=== PATIENT | female | born 1955 | race Caucasian/White ===

== ENCOUNTER 2019-08-25 11:45 | Outpatient (CLI) | payer OTHER, MEDICARE, SELFPAY ==
--- NOTE | 2019-08-25 11:57 | MM_ITS ---
WS: [id number] RIGHT DIGITAL MAMMOGRAPHY WITH CAD CLINICAL INFORMATION: RT BREAST MASS COMPARISON: June 23, 2019 TECHNIQUE: 3 views of the right breast were obtained. FINDINGS: Scattered fibroglandular densities of the right breast. Again seen are the heterogeneous clusters of calcifications lower inner right breast. There are 2 clusters of heterogeneous punctate calcification s both in a ductal distribution which are indeterminate. Recommend stereotactic guided biopsy of both these areas. MM/[place] [id number] IMPRESSION: BI-RADS: 4B-Suspicious: Intermediate FOLLOW UP: Stereotactic Biopsy Recommended
== END 2019-08-25 11:46 | disposition home or self-care (01) ==
LOC: RADSHAW 11:54
PROVIDERS: Family Provider Electrodiagnostic Medicine; PCP Electrodiagnostic Medicine; Visit Provider Electrodiagnostic Medicine
DX: R92.1 Mammographic calcification found on diagnostic imaging of breast (principal)
CPT/HCPCS: 77065

== ENCOUNTER 2019-09-10 05:49 | Day surgery (SDC) | payer OTHER, MEDICARE, SELFPAY ==
[2019-09-09 10:08] VITALS: BMI 29.0
[2019-09-10] MEDS: sodium chloride 0.9% 1,000 ML 30 ML (06:28)
[2019-09-10 06:32] LABS: Glucose Point of Care 92 mg/dL (70-110)
--- NOTE | 2019-09-10 06:47 | ANES.PREANES ---
Pre-Anesthetic Assessment Pre-Anesthetic Assessment: Height/Weight: Height 1.68 m Weight 81.647 kg Preop Diagnosis: constipation Proposed Procedure: Operation Date: 09/10/19 07:00 Proposed Procedures p Colonoscopy(Not Applicable) - Parveen Rabago MD Was Beta Javier taken within 24 hours: Yes Last intake: Intake Last Liquid Date 09/09/19 Last Liquid Time 16:00 Last Solid Date 09/08/19 Last Solid Time 17:00 Social: Social History: Tobacco (quit 30 years ago) Exam: Pre-Anes Outpt Exam: alert, oriented x 3 and clear to auscultation bilaterally Airway: Submandibular: WNL Cervical ROM: WNL MP: 2 Pulmonary: Pulmonary: None reported CV/HEM: CV/HEM: HTN : : None reported Hepatic: Hepatic: None reported GI: GI: None reported Metabolic: Metabolic: DM (pre-diabetes) Musc/skel: Musc/skel: None reported Neuropsych: Neuropsych: None reported Anesthetic Plan: ASA status: II Anesthesia: Anesthesia Evaluation and MAC Risk of > 500 ml blood loss (7ml/kg in children): No PFSH Anesthesia PFSH: Social History (Updated 09/09/19 @ 09:56 by Dede Hernández) Smoking and tobacco status: former smoker Quit status (tobacco): has quit using tobacco Alcohol intake: current Alcohol intake frequency: few times a month Data Anesthesia Other Labs: Laboratory Results - last 48 hr 09/10/19 06:17 POC Glucose 92 Cardiac Studies: No Data to Display
--- NOTE | 2019-09-10 07:09 | PM.HPUD ---
H&P update H&P Update: DATE OF SURGERY/PROCEDURE: 09/10/19 DATE H&P PERFORMED: 09/10/19 PLANNED PROCEDURE: Operation Date: 09/10/19 07:00 Proposed Procedures p Colonoscopy(Not Applicable) - Parveen Rabago MD Full H&P Perinent History: Social History: Social History Smoking and tobacco status: former smoker Quit status (tobacco): has quit using tobacco Alcohol intake: current Alcohol intake frequency: few times a month
[2019-09-10 07:25] VITALS: BP 120/84; PULSE 70; RESP 18; TEMP 36.2; O2SAT 100
[2019-09-10 07:37] VITALS: BP 114/80; PULSE 81; RESP 118; O2SAT 98
--- NOTE | 2019-09-10 07:56 | ANE.PACU ---
 Inpatient post-anesthesia follow up: Airway intact: Yes Vital signs: Temperature 97.1 F Pulse Rate [Left A pical] 81 Respiratory Rate 118 Blood Pressure [Le ft Arm] 114/80 Pulse Oximetry 98 Oxygen Delivery Me thod Room Air Oxygen Flow Rate 3 Fraction of Inspir ed Oxygen Hydration adequate: Yes Nausea and vomiting: No Pain level: Other Pain level: 0/10 Mental status: Baseline
--- NOTE | 2019-09-17 16:13 | PM.HPUD ---
H&P update H&P Update: DATE OF SURGERY/PROCEDURE: 09/17/19 DATE H&P PERFORMED: 08/25/19 H&P UPDATE INFORMATION: H&P completed within last 30 days and No changes to prior documentation PLANNED PROCEDURE: Operation Date: 09/10/19 07:00 Proposed Procedures p Colonoscopy(Not Applicable) - Parveen Rabago MD Full H&P Perinent History: Social History: Social History Smoking and tobacco status: former smoker Quit status (tobacco): has quit using tobacco Alcohol intake: current Alcohol intake frequency: few times a month
--- NOTE | 2019-09-21 10:14 | PM.HPUD ---
H&P update H&P Update: DATE OF SURGERY/PROCEDURE: 09/10/19 DATE H&P PERFORMED: 08/25/19 H&P UPDATE INFORMATION: H&P completed within last 30 days and No changes to prior documentation PLANNED PROCEDURE: Operation Date: 09/10/19 07:00 Proposed Procedures p Colonoscopy(Not Applicable) - Parveen Rabago MD Full H&P Perinent History: Social History: Social History Smoking and tobacco status: former smoker Quit status (tobacco): has quit using tobacco Alcohol intake: current Alcohol intake frequency: few times a month
== END 2019-09-10 07:41 | disposition home or self-care (01) ==
PROVIDERS: Family Provider Electrodiagnostic Medicine; PCP Electrodiagnostic Medicine; Visit Provider Surgery
PROC: 0DJD8ZZ Inspection of Lower Intestinal Tract, Via Natural or Artificial Opening Endoscopic (ICD-10-PCS; CPT 45378; principal; 2019-09-10 07:00)
DX: K92.1 Melena (principal); K59.00 Constipation, unspecified; Z86.010 Personal history of colon polyps; K57.30 Diverticulosis of large intestine without perforation or abscess without bleeding; K64.8 Other hemorrhoids; K63.89 Other specified diseases of intestine; Z87.891 Personal history of nicotine dependence; I10 Essential (primary) hypertension; E11.9 Type 2 diabetes mellitus without complications
CPT/HCPCS: 12345; 36416; 45378; 82962; 96365; J2704; J7030

== ENCOUNTER 2019-09-22 12:04 | Outpatient (CLI) | payer OTHER, MEDICARE, SELFPAY ==
--- NOTE | 2019-09-22 12:13 | MM_ITS ---
WS: [id number] STEREOTACTIC RIGHT BREAST BIOPSY WITH VACUUM ASSISTANCE. History: 2 clusters of Heterogeneous right breast calcifications. Biopsy recommended for suspicious c alcifications. Comparison: Procedure, risks, and complications were discussed the patient who agreed to proceed. Prior imaging w as reviewed. Cluster of calcifications within the right breast are localized. THE MORE POSTERIOR AND SUPERIOR CLUSTER MEDIAL RIGHT BREAST IS SAMPLE A Stereotactic imaging was performed. Patient was prepped and draped in usual sterile fashion. After 1% lidocaine, calcifications were targeted stereotactically in the right breast. Small incision was mad e. Needle advanced into the cluster of calcifications right breast with imaging demonstrating appropr iate position relative to the calcifications. Multiple vacuum-assisted core biopsies were obtained. P ostprocedure imaging demonstrates calcifications within the biopsy specimen. The biopsy cavity was lavaged. Titanium clip was placed at the biopsy site. Postprocedure imaging dem onstrates clip in good position. No immediate complications. NEXT THE ADDITIONAL CLUSTER OF CALCIFICATIONS IN THE MEDIAL RIGHT BREAST MORE SUPERFICIAL AND INFERIO R WERE LOCALIZED SAMPLE B Stereotactic imaging was performed. Patient was prepped and draped in usual sterile fashion. After 1% lidocaine, calcifications were targeted stereotactically in the right breast. Small incision was mad e. Needle advanced into the cluster of calcifications right breast with imaging demonstrating appropr iate position relative to the calcifications. Multiple vacuum-assisted core biopsies were obtained. P ostprocedure imaging demonstrates calcifications within the biopsy specimen. The biopsy cavity was lavaged. Titanium clip was placed at the biopsy site. Postprocedure imaging dem onstrates clip in good position. No immediate complications. 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 Solid and cribriform patterns with calcifications and comedo type necrosis. No invasive malignancy. DCIS is 3 mm in greatest dimension. SPECIMEN B (right inferior and superficial calcifications) Ductal carcinoma in situ. High nuclear grade with central comedo-type necrosis and calcifications. No invasive carcinoma identified. Largest focus of ductal c arcinoma in situ 0.5 CM. DCIS specimens are identical histologically. Prognostic profile pending. See pathology report for additional detail. IMPRESSION: 1. Uncomplicated vacuum-assisted stereotactic biopsy of calcifications in the RIGHT breast. 2. Specimen A pathology demonstrates ductal carcinoma in situ, high nuclear gr bennett. 3. Specimen B pathology demonstrates ductal carcinoma in situ, high nuclear gr bennett. 4. See pathology report for additional detail. BI-RADS 6 FOLLOW UP: Recommend BREAST SURGERY consultation for resection of the above fartun cifications.
[2019-09-29 13:20] LABS: Miscellaneous Test See Scanned Lab Rpt
== END 2019-09-22 12:05 | disposition home or self-care (01) ==
LOC: RADSHAW 12:04
PROVIDERS: Family Provider Electrodiagnostic Medicine; PCP Electrodiagnostic Medicine; Visit Provider Electrodiagnostic Medicine
DX: D05.81 Other specified type of carcinoma in situ of right breast (principal)
CPT/HCPCS: 19081; 19082; 88305; 88361; J2001

== ENCOUNTER 2019-10-07 14:17 | Outpatient (CLI) | payer OTHER, MEDICARE, SELFPAY ==
--- NOTE | 2019-10-07 19:11 | ONC CON_ITS ---
Dr. Yanez New Patient Note Patient: Anna Prater Unit #: [id number]: [id number] Dicatated By: Beltran Yanez M.D.Date of Visit: Oct 07, 2019 Onc MED New Patient/Consult Referring Physician: Chief Complaint: Breast cancer. 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 She had presented with an abnormal screening mammogram. That study, from 06/23/2019, was BI-RADS 0, incomplete. It showed suspicious heterogeneous calcifications in the lower inner quadrant of the right breast. Diagnostic mammogram on 08/25/2019 was BI-RADS 4B, suspicious. It showed 2 clusters of heterogeneous punctate calcifications both in a ductal distribution in the lower inner right breast. Biopsy was recommended. She then underwent stereotactic right breast biopsy with vacuum assistance at both sites. The more superior posterior and medial lesion showed high nuclear grade ductal carcinoma in situ with solid and cribriform pattern and with comedo type necrosis. There was no invasive malignancy identified. The more inferior lesion also showed high-grade ductal carcinoma in situ with central comedo type necrosis. ER and MT receptors were both strongly positive at 98% and 100% respectively. She has been feeling good generally, though she says her energy has never been the best. She is active. Her ECOG score is 0. She has good appetite. Her weight is down a little, but she has been trying to lose. She has not had fever. She has occasional hot flashes. She has no shortness of breath, cough, or chest pain. She has had some chronic bowel problems, which she manages with senna. She had a negative colonoscopy in August. She has frequent urination. She reports having some joint pain here and there and generalized achiness. She has just occasional headache. She reports having numbness in her right hand at night. She had her first child at age 17. She had hysterectomy without oophorectomy in 1990. She underwent natural menopause around age 49. She had no hormone replacement therapy. There is no family history of breast cancer or ovarian cancer. Past Medical History: Her medical history includes hyperlipidemia, hypertension, and type II diabetes. She has a history of cardiac arrhythmia. Past Surgical History: She underwent stereotactic right breast biopsy on 09/22/2019. Her other surgical/procedural history includes devitated septum repair, hemorrhoidectomy x 2, hysterectomy, and tubal ligation. Medications: Lisinopril 1 Tablet (of 20 mg) Oral daily, Magnesium 1 Tablet (of 400 mg) Oral daily, Metoprolol Succinate ER 1 Tablet (of 100 mg) Tablet SR 24 HR Oral daily Allergies: No Known Allergies. Social History: Ms. Prater is . 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 She has a history of smoking 1 1/2 pack of cigarettes daily for 15 years. She quit smoking at age 34. She has just very occasional alcohol use. Family History: Ms. Prater's mother is . Ms. Prater's father is : Abdominal Aortic Aneurysm. Father at age 75 of ruptured thoracic aneurysm. Mother had heart disease and COPD. She also at age 75. Two sisters are in good health. There is no history of breast cancer or ovarian cancer in the family. Review Of Symptoms: Constitutional - She feels good generally, though her energy is not the best. She is very activy. Her appetite is good. She has been working on losing weight. No fever or chills. She occasionally has hot flashes and sweating. ECOG score is 0, Eyes - No change in vision, ENMT - No hearing loss or tinnitus. No sinus congestion/drainage. No mouth sores. No sore throat or difficulty swallowing, Hematologic/Lymphatic - No abnormal bruising or bleeding, Respiratory - No shortness of breath. No cough. No pleuritic pain or hemoptysis, Cardiovascular - No angina pain. She occasionally has an irregular heart rate, Gastrointestinal - No nausea or vomiting. No heartburn or acid reflux. She drinks Senna in her tea everyday to help manage her constipation. No blood in the stool or black stools, Genitourinary (F) - No dysuria or hematuria. She has urinary frequency. No urgency or incontinence, Musculoskeletal - She has occasional generalized aches and pains, Integumentary - No skin complications, Neurologic - She has occasional headaches. No dizziness. She has numbness and tingling in her right hand at night, Psychiatric - No anxiety or depression. No insomnia. Vital Signs: Performed on Oct 07, 2019 14:46: 0, 27.96, 1.88 sq.m, 66.00 in, 99 %, 70 /min, 22 /min, 166/90 mm(hg) (HIGH), 98.3 F (LOW), and 173.2 lbs (HIGH). Physical Examination: Constitutional - She appears to be in good general health, Eyes - Sclerae nonicteric. Conjunctivae clear, ENMT - No lesions noted in the oral cavity, Neck - No mass or thyromegaly, Hematologic/Lymphatic - No cervical or clavicular adenopathy, Respiratory - Lungs are clear with good air movement bilaterally, Cardiovascular - Heart rhythm is regular. There is no murmur, gallop, or rub noted. There is no carotid bruit noted, Breasts - There is a nodule at the biopsy site in the right breast. There are no other breast masses noted. There is no axillary adenopathy, Abdomen - Soft and non-tender. Liver and spleen are not enlarged. There is no abdominal mass or ascites noted and there is no inguinal adenopathy, Back/Spine - No spine or CVA tenderness noted, Extremities - No edema. Pedal pulses are palpable bilaterally, Integumentary - No rashes. No suspicious skin lesions noted, Neurologic - No focal neurologic deficits noted. Impression: 1. 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 2. She underwent stereotactic biopsy of 2 lesions in the lower inner right breast quadrant on 09/22/2019. Her other medical illnesses include: 3. Hypertension. 4. Hyperlipidemia. 5. Type 2 diabetes, currently not requiring medication. 6. She has a history of cardiac arrhythmia. Plan: The pathology results were reviewed with the patient and we discussed the clinical implications. She has ductal carcinoma in situ involving 2 sites within the lower inner quadrant of the right breast. Assuming the lesions can be excised with clear margin, it should be amenable to treatment with breast conservation management. She is aware this would involve lumpectomy of both lesions followed by radiation. She would also then be eligible for adjuvant hormonal therapy, but that can be discussed in more detail later. She would require mastectomy if the disease cannot be resected with clear margin and/or acceptable cosmetic outcome. At this point I will review the mammogram with Dr. Kulkarni and with Dr. Rabago. Assuming everyone is agreeable, she will then proceed with the lumpectomy procedure. Further treatment recommendations will depend on the pathology results. All of her questions were addressed. Signed By: Beltran Yanez M.D. <<Signature on File>>
== END 2019-10-07 14:18 | disposition home or self-care (01) ==
LOC: ONCMED 14:18
PROVIDERS: Family Provider Electrodiagnostic Medicine; PCP Electrodiagnostic Medicine; Referring Provider Electrodiagnostic Medicine; Visit Provider Internal Medicine Medical Oncology
DX: D05.11 Intraductal carcinoma in situ of right breast (principal); Z17.0 Estrogen receptor positive status [ER+]; Z78.0 Asymptomatic menopausal state; E78.5 Hyperlipidemia, unspecified; I10 Essential (primary) hypertension; E11.9 Type 2 diabetes mellitus without complications; Z79.899 Other long term (current) drug therapy; Z87.891 Personal history of nicotine dependence
CPT/HCPCS: 99205

== ENCOUNTER 2019-10-22 06:56 | Outpatient (CLI) | payer OTHER, MEDICARE, SELFPAY ==
[2019-10-21 12:41] VITALS: BMI 29.0
[2019-10-22 07:09] VITALS: BP 165/104; PULSE 61; RESP 18; TEMP 36.2; O2SAT 97
--- NOTE | 2019-10-22 08:03 | MM_ITS ---
WS: [id number] RIGHT BREAST NEEDLE LOCALIZATION by mammography HISTORY: RT BREAST DCIS X 2 COMPARISON: 09/22/2019, 08/25/2019, 06/23/2019 Procedure, risks and complications are explained to the patient. Consent has been obtained. Localization of prior biopsy clips is performed with a grid plate. Skin is cleansed with ChloraPrep a nd anesthetized with 1% buffered lidocaine. Kopans needle is inserted to the biopsy clips. [place] ar e advanced 1.0 cm beyond the biopsy clips. Wire is secured and the patient is sent to the OR with no complications. SPECIMEN RADIOGRAPH: Clips and the entire wires with hooks are present in the specimen. MM/[place] [id number] IMPRESSION: 1. Uncomplicated wire localization of the clips within the RIGHT breast at le or biopsy sites. 2. No complications. 3. Specimen contains the entire wires and clips. PATHOLOGY: Focal surrounding atypical intraductal hyperplasia. No invasive carc inoma or residual ductal carcinoma in situ. RECOMMENDATION: Follow-up with Dr. Rabago.
--- NOTE | 2019-10-22 08:03 | MM_ITS ---
WS: [id number] RIGHT BREAST NEEDLE LOCALIZATION by mammography HISTORY: RT BREAST DCIS X 2 COMPARISON: 09/22/2019, 08/25/2019, 06/23/2019 Procedure, risks and complications are explained to the patient. Consent has been obtained. Localization of prior biopsy clips is performed with a grid plate. Skin is cleansed with ChloraPrep a nd anesthetized with 1% buffered lidocaine. Kopans needle is inserted to the biopsy clips. [place] ar e advanced 1.0 cm beyond the biopsy clips. Wire is secured and the patient is sent to the OR with no complications. SPECIMEN RADIOGRAPH: Clips and the entire wires with hooks are present in the specimen. MM/MM surgical specimen RT IMPRESSION: 1. Uncomplicated wire localization of the clips within the RIGHT breast at le or biopsy sites. 2. No complications. 3. Specimen contains the entire wires and clips. PATHOLOGY: Focal surrounding atypical intraductal hyperplasia. No invasive carc inoma or residual ductal carcinoma in situ. RECOMMENDATION: Follow-up with Dr. Rabago.
--- NOTE | 2019-10-22 09:43 | ANES.PREANE2 ---
Pre-Anesthetic Assessment Pre-Anesthetic Assessment: Height/Weight: Height 1.68 m Weight 81.647 kg Temp Pulse Resp BP Pulse Ox 97.2 F L 61 18 165/104 97 10/22/19 07:09 10/22/19 07:09 10/22/19 07:09 10/22/19 07:09 10/22/19 07:09 Preop Diagnosis: Right breast MAss Proposed Procedure: Operation Date: 10/22/19 10:00 Proposed Procedures p Breast Biopsy Needle Localization(Right) - Parveen Rabago MD Was Beta Javier taken within 24 hours: Yes Last intake: Intake Last Liquid Date 10/21/19 Last Liquid Time 17:00 Last Solid Date 10/21/19 Last Solid Time 17:00 Social: Social History: Tobacco Packs per day: 1 Pack years: 24 Comment: quit 24 Exam: Pre-Anes Outpt Exam: alert, oriented x 3, clear to auscultation bilaterally and regular rate & rhythm Airway: Submandibular: WNL Cervical ROM: WNL MP: 1 CV/HEM: CV/HEM: HTN Comments: rx'd x 30y stress test tnegative : Comments: frequency/urgency Musc/skel: Musc/skel: Lower Back Pain Comments: nonradiating Neuropsych: Neuropsych: WELDON Anesthetic Plan: Anesthesia: MAC PFSH Anesthesia PFSH: Social History (Updated 09/09/19 @ 09:56 by Dede Hernández) Smoking and tobacco status: former smoker Quit status (tobacco): has quit using tobacco Alcohol intake: current Alcohol intake frequency: few times a month Data Anesthesia Cardiac Studies: No Data to Display
[2019-10-22] MEDS: sodium chloride 0.9% 1,000 ML 30 ML IV (10:00)
--- NOTE | 2019-10-22 10:05 | W.PM.OPSUD ---
Surgery/Procedure H&P Update DATE OF PROCEDURE: October 22, 2019 DATE H&P PERFORMED: 08/25/19 H&P UPDATE INFORMATION: I have reviewed H&P completed within last 30 days and No changes to prior documentation PREOP DIAGNOSIS: Right breast MAss PLANNED PROCEDURE: Operation Date: 10/22/19 10:00 Proposed Procedures p Breast Biopsy Needle Localization(Right) - Parveen Rabago MD
--- NOTE | 2019-10-22 10:59 | P.OP_ITS ---
Operative Report Date of procedure: October 22, 2019 Pre-op Diagnosis: Multifocal right breast DCIS. Post-op diagnosis: same Procedure Done: Right breast lumpectomy following needle localization x2. Specimens removed/disposition: Right breast lumpectomy specimen. Long suture anteriorly, short suture medially. Surgeon: Parveen Rabago Anesthesia: MAC Estimated blood loss (mL): 10 Complications: None. Condition: stable Disposition: same day Procedure: The patient was brought to the operating room and was placed in a supine position on the operating room table. A monitored anesthetic was induced. The right breast was prepped and draped in a sterile fashion, taking care not to disturb the localization wires which had been placed in radiology preoperatively. A combination of 1% lidocaine and 0.5% bupivacaine with 1- 200,000 parts epinephrine was used for local anesthesia throughout the procedure. The patient had 2 localization wires entering the upper mid aspect of the right breast. The lesions in question were in the lower inner quadrant on imaging. For that reason a transverse incision was carried out along the 3:00 axis of the right breast and dissection was initially carried out straight posteriorly until the anterior wire was identified. The second localization wire was found to be posterior and somewhat medial to the first. The wires were brought into the incision. A combination of cautery and sharp dissection were then used to divide the tissue all the way around both localization wires. The patient did have some somewhat fibrous tissue in the lower aspect of the breast, put very possibly the areas that were being sought. For that reason dissection was carried out a little bit more posteriorly, leaving the specimen with some partitions in it. Before the specimen was completely removed a long suture was placed anteriorly and a short suture was placed medially. The wound was irrigated with saline and some small bleeding points were controlled with cautery. No additional abnormalities were seen nor felt in the wound. The skin was reapproximated using a running subcuticular suture of 4-0 Vicryl. Benzoin and Steri-Strips were placed over the incision and a sterile bandage followed. The patient was taken to the recovery area in stable condition postoperatively.
[2019-10-22 11:10] VITALS: BP 88/56; PULSE 63; RESP 18; TEMP 36.2; O2SAT 94
[2019-10-22] MEDS: HYDROcodone-acetaminophen 5-325 mg Tablet 1 TAB PO (11:31)
[2019-10-22 11:34] VITALS: BP 128/73; PULSE 62; RESP 18; O2SAT 99
== END 2019-10-22 11:44 | disposition home or self-care (01) ==
PROVIDERS: Family Provider Electrodiagnostic Medicine; PCP Electrodiagnostic Medicine; Visit Provider Surgery
DX: D05.11 Intraductal carcinoma in situ of right breast (principal); K40.90 Unilateral inguinal hernia, without obstruction or gangrene, not specified as recurrent; I10 Essential (primary) hypertension; Z87.891 Personal history of nicotine dependence
CPT/HCPCS: 12345; 19281; 88305; 96365; J0690; J2001; J2250; J2704; J3010; J3490; J7030

== ENCOUNTER 2019-11-27 06:58 | Outpatient (CLI) | payer OTHER, MEDICARE, SELFPAY ==
--- NOTE | 2019-11-27 14:11 | ONC FU_ITS ---
Dr. Yanez Patient Follow-Up Note Patient: Anna Prater Unit #: [id number]: 1955 Dicatated By: Beltran Yanez M.D.Date of Visit:Nov 27, 2019 Onc Med Follow-up/Prog Note Chief Complaint: Breast cancer. 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 She had presented with an abnormal screening mammogram. That study, from 06/23/2019, was BI-RADS 0, incomplete. It showed suspicious heterogeneous calcifications in the lower inner quadrant of the right breast. Diagnostic mammogram on 08/25/2019 was BI-RADS 4B, suspicious. It showed 2 clusters of heterogeneous punctate calcifications both in a ductal distribution in the lower inner right breast. Biopsy was recommended. She then underwent stereotactic right breast biopsy with vacuum assistance at both sites. The more superior posterior and medial lesion showed high nuclear grade ductal carcinoma in situ with solid and cribriform pattern and with comedo type necrosis. There was no invasive malignancy identified. The more inferior lesion also showed high-grade ductal carcinoma in situ with central comedo type necrosis. ER and MI receptors were both strongly positive at 98% and 100% respectively. On 10/22/2019 she underwent right breast lumpectomy. Pathology showed no identifiable discrete mass. Biopsy changes were noted with very focal surrounding atypical intraductal hyperplasia. There was no invasive carcinoma or residual ductal carcinoma in situ identified. Her other medical illnesses include hypertension, hyperlipidemia, and type 2 diabetes. She has a history of cardiac arrhythmia. She had her first child at age 17. She had hysterectomy without oophorectomy in 1990. She underwent natural menopause around age 49. She had no hormone replacement therapy. There is no family history of breast cancer or ovarian cancer. She has a history of smoking 1-1/2 packs of cigarettes daily for 15 years. She had quit smoking at age 34. She is seen for follow-up via Telehealth visit to discuss the lumpectomy results and to discuss further management of the breast cancer. She still has some soreness at the lumpectomy site. She is otherwise feeling good. Medications: Lisinopril 1 Tablet (of 20 mg) Oral daily, Magnesium 1 Tablet (of 400 mg) Oral daily, Metoprolol Succinate ER 1 Tablet (of 100 mg) Tablet SR 24 HR Oral daily Allergies: No Known Allergies. Impression: 1. 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 2. She underwent stereotactic biopsy of 2 lesions in the lower inner right breast quadrant on 09/22/2019. 3. She underwent right breast lumpectomy on 10/22/2019. Pathology biopsy site changes with focal surrounding atypical intraductal hyperplasia with no invasive carcinoma or residual ductal carcinoma in situ identified. Her other medical illnesses include: 4. Hypertension. 5. Hyperlipidemia. 6. Type 2 diabetes, currently not requiring medication. 7. She has a history of cardiac arrhythmia. Plan: I reviewed the pathology findings on the lumpectomy. There was a focus of atypical intraductal hyperplasia, but there was no residual ductal carcinoma in situ and no invasive carcinoma identified. Given the very small size of her primary malignancy, estimated at 3 mm with adequate margin, I feel it is acceptable to manage this without radiation. With an ER/MI positive tumor, she would be an appropriate candidate for adjuvant hormonal therapy, particularly with the associated atypical hyperplasia. We discussed the fact that adjuvant hormonal therapy would potentially reduce her risk of requiring treatment for breast cancer again, but it has no impact on survival in the setting of ductal carcinoma in situ. In this situation I would recommend tamoxifen, she has had a previous hysterectomy and is not at risk for endometrial carcinoma. She is advised that it would have been associated risk of thromboembolism and that it may cause hot flashes or other antiestrogenic side effects. She is going to consider it, but it appears to be unlikely that she will want treatment. If not, I will just plan to see her for a follow-up visit in 6 months. In the meantime, though, I will get baseline laboratory studies including CBC, comprehensive metabolic profile, and hemoglobin A1c level. Signed By: Beltran Yanez M.D. <<Signature on File>>
== END 2019-11-27 06:59 | disposition home or self-care (01) ==
LOC: ONCMED 07:01
PROVIDERS: Family Provider Electrodiagnostic Medicine; PCP Electrodiagnostic Medicine; Visit Provider Internal Medicine Medical Oncology
DX: D05.11 Intraductal carcinoma in situ of right breast (principal); Z17.0 Estrogen receptor positive status [ER+]; I10 Essential (primary) hypertension; E78.5 Hyperlipidemia, unspecified; E11.9 Type 2 diabetes mellitus without complications; Z98.890 Other specified postprocedural states; Z86.79 Personal history of other diseases of the circulatory system; Z87.891 Personal history of nicotine dependence

== ENCOUNTER 2019-12-04 09:20 | Outpatient (CLI) | payer OTHER, MEDICARE, SELFPAY ==
[2019-12-04 11:36] LABS: Basophils % 0.6 %; Eosinophils # 0.2 10^3/uL (0.0-0.8); Hematocrit 44.5 % (37.0-47.0); Hemoglobin 14.1 g/dL (11.5-15.3); Lymphocytes # 2.3 10^3/uL (0.8-4.8); Lymphocytes % 43.6 %; Mean Corpuscular HGB Conc 31.7 g/dL (30.0-36.0); Mean Corpuscular Hemoglobin 30.9 pg (28.0-34.0); Mean Corpuscular Volume 97.4 fL (81-99); Mean Platelet Volume 10.6 fL (7.4-10.4); Monocytes # 0.6 10^3/uL (0.2-0.9); Monocytes % 10.3 %; Neutrophils # 2.3 10^3/uL (1.8-7.7); Neutrophils % 42.3 %; Nucleated Red Blood Cells % 0 %; Platelet Count 321 10^3/cmm (130-400); Red Blood Count 4.57 10^6/uL (4.1-5.3); Red Cell Distribution Width 13.7 % (12.1-15.1); White Blood Count 5.4 10^3/uL (4.0-10.0)
[2019-12-04 12:02] LABS: Estmated Average Glucose 114; Hemoglobin A1C 5.6 % (4.0-6.0)
[2019-12-04 12:03] LABS: Alanine Aminotransferase 19 U/L (0-33); Albumin Level 4.5 g/dL (3.5-5.2); Alkaline Phosphatase 81 IU/L (35-105); Anion Gap 17.4 (5-19); Aspartate Amino Transferase 15 U/L (0-32); Blood Urea Nitrogen 20 mg/dL (8-23); Calcium 9.7 mg/dL (8.5-10.5); Carbon Dioxide 25 mmol/L (22-29); Chloride 102 mmol/L (98-107); Globulin 3.1 g/dL (1.3-4.6); Glucose 101 mg/dL (65-115); Osmolality Calculated 287 mOsm/kg (285-295); Potassium 4.4 mmol/L (3.5-5.1); Sodium 140 mmol/L (136-145); Total Bilirubin 0.4 mg/dL (0.15-1.2); Total Protein 7.6 g/dL (6.6-8.7)
== END 2019-12-04 09:21 | disposition home or self-care (01) ==
LOC: ONCMED 11:27
PROVIDERS: Family Provider Electrodiagnostic Medicine; PCP Electrodiagnostic Medicine; Visit Provider Internal Medicine Medical Oncology
DX: D05.11 Intraductal carcinoma in situ of right breast (principal); E11.9 Type 2 diabetes mellitus without complications
CPT/HCPCS: 36415; 80053; 83036; 85025

== ENCOUNTER 2020-02-16 08:33 | Outpatient (CLI) | payer OTHER, MEDICARE, SELFPAY ==
--- NOTE | 2020-02-16 09:13 | CT_ITS ---
WS: [id number] CT ABDOMEN AND PELVIS WITH CONTRAST HISTORY: RIGHT LOWER QUAD PAIN, HERNIA TECHNIQUE: Imaging performed of the abdomen and pelvis with IV contrast. Single phase imaging of the abdomen. Coronal and sagittal reformats are submitted. All CT scans at [facility] use at least one of these dose optimization techniques: automated exposure control; mA and/or kV adjustment per patient size (includes targeted exams where dose is matched to clinical indication); or iterativ e reconstruction. IV CONTRAST: Omnipaque 300; 95 mL IV. Oral contrast: Yes. DLP: 1103.77 mGycm COMPARISON: None available. Lower thorax: Lung bases are clear. Heart is normal size. Small hiatal hernia. Liver/biliary system: Normal size with no intrahepatic dilatation. Gallbladder: Normal. No gallstones or wall thickening. No pericholecystic fluid. Pancreas: Normal. Spleen: Normal. Adrenal glands: Normal. Right kidney: Normal. Left kidney: Normal. Aorta: Mild atherosclerosis with no aneurysm. Lymphadenopathy: None. Free fluid: None. GI tract: Blind-ending distended loop of GI tract extending from the cecum measures 1.4 cm. Calcifica tion versus contrast in the wall and a few scattered foci of air. As this is a blind-ending loop in m ay represent the appendix or diverticulum. The appendix is not identified as a separate additional st ructure. This structure is separate from the terminal ileum. Not a lot of adjacent inflammation. Ther e is mild edema in the ascending colon. Low-attenuation nodule in the duodenum is probably a lipoma. Abdominal wall: Unremarkable abdominal wall. No hernia. Pelvis: Normal. Bones: L4 anterolisthesis by [address]/CT abdomen pelvis w con* [id number] IMPRESSION: 1. Blind-ending loop extending from the cecum measures 1.4 cm. Calcification v ersus oral contrast in the wall along with several foci of air. A separate appe ndix is not identified. Appendiceal tumor such as mucocele should be considered as a possible etiology. There is no adenopathy or free fluid. Recommend short- term follow-up and surgical evaluation. CT follow-up in 2 weeks could be perfor med to confirm resolution of an inflammatory process or persistent appendiceal abnormality. 2. Atherosclerosis aorta.
[2020-02-16] MEDS: iohexol 300 mg/mL 50 mL Btl PO (09:18)
[2020-02-16 10:58] LABS: Blood Urea Nitrogen 19 mg/dL (8-23)
[2020-02-16] MEDS: iohexol 300 mg/mL 100 mL Btl IV (11:09)
== END 2020-02-16 08:34 | disposition home or self-care (01) ==
LOC: RADWPI 08:37
PROVIDERS: Family Provider Electrodiagnostic Medicine; PCP Electrodiagnostic Medicine; Visit Provider Electrodiagnostic Medicine
DX: R10.31 Right lower quadrant pain (principal); K40.90 Unilateral inguinal hernia, without obstruction or gangrene, not specified as recurrent
CPT/HCPCS: 74177; 82565; 84520; Q9967

== ENCOUNTER 2020-03-15 07:57 | Outpatient (CLI) | payer OTHER, MEDICARE, SELFPAY ==
[2020-03-15] MEDS: iohexol 300 mg/mL 50 mL Btl PO (08:17)
--- NOTE | 2020-03-15 09:30 | CT_ITS ---
WS: [id number] CT ABDOMEN AND PELVIS WITH CONTRAST HISTORY: Abdominal Pain, RIGHT lower quadrant. History of appendectomy has been provided on today's examination. TECHNIQUE: Imaging performed of the abdomen and pelvis with IV contrast. Single phase imaging of the abdomen. Coronal and sagittal reformats are submitted. All CT scans at [facility] use at least one of these dose optimization techniques: automated exposure control; mA and/or kV adjustment per patient size (includes targeted exams where dose is matched to clinical indication); or iterativ e reconstruction. IV CONTRAST: Omnipaque 300; 95 mL IV. Oral contrast: Yes. DLP: 1145.16 mGycm COMPARISON: 02/16/2020 Lower thorax: Lung bases are clear. Heart is normal size. Small hiatal hernia. Liver/biliary system: Normal size with no intrahepatic dilatation. Gallbladder: Normal. No gallstones or wall thickening. No pericholecystic fluid. Pancreas: Normal. Spleen: Normal. Adrenal glands: Normal. Right kidney: Normal. Left kidney: Normal. Aorta: Mild atherosclerosis of aorta. Ectasia with no aneurysm. Lymphadenopathy: None. Free fluid: None. GI tract: Again noted is the blind-ending loop of GI tract measuring 2.7 cm from the cecum. On today' s examination patient provided a history of a prior appendectomy. Within the blind-ending loop there are a few foci of air. No adjacent inflammation. No calcification associated with today's examination . No GI tract obstruction. There are 2 adjacent areas of narrowing in the ascending colon not causing a significant obstruction. Similar to the prior study although slightly more apparent today. There a re a few scattered distal colon diverticula. Abdominal wall: Unremarkable abdominal wall. No hernia. Pelvis: Prior hysterectomy. Bones: L4 anterolisthesis by 3 mm. Severe disc space narrowing at L5-S1. No osteoblastic or osteolyti c bone disease. CT/CT abdomen pelvis w con* [id number] IMPRESSION: 1. Persistent blind-ending loop extending medially from the cecum. This blind- ending loop with a maximum diameter of 2.7 cm contains fecal material. May be a large cecal diverticulum. History of prior appendectomy moderate was provided on today's examination. 2. There are additional areas of narrowing and stricture in the ascending colo n. Peristalsis versus neoplastic or inflammatory strictures. These areas of nicci rowing persists from the prior examination therefore workup for possible neopla stic process should be considered. Recommend follow-up colonoscopy.
[2020-03-15] MEDS: iohexol 300 mg/mL 100 mL Btl IV (09:54)
== END 2020-03-15 07:58 | disposition home or self-care (01) ==
LOC: RADWPI 08:03
PROVIDERS: Family Provider Electrodiagnostic Medicine; PCP Electrodiagnostic Medicine; Visit Provider Surgery
DX: R10.31 Right lower quadrant pain (principal)
CPT/HCPCS: 74177; Q9967

== ENCOUNTER 2020-03-29 07:06 | Day surgery (SDC) | payer OTHER, MEDICARE, SELFPAY ==
[2020-03-25 12:03] VITALS: BMI 29.5
[2020-03-29 07:20] VITALS: BP 168/104; PULSE 70; RESP 18; TEMP 36.1; O2SAT 98
[2020-03-29] MEDS: sodium chloride 0.9% 1,000 ML 30 ML IV (07:32)
--- NOTE | 2020-03-29 08:00 | ANES.PREANE2 ---
Pre-Anesthetic Assessment Pre-Anesthetic Assessment: Height/Weight: Height 1.68 m Weight 83.007 kg Temp Pulse Resp BP Pulse Ox 97.0 F L 70 18 168/104 98 03/29/20 07:20 03/29/20 07:20 03/29/20 07:20 03/29/20 07:20 03/29/20 07:20 Preop Diagnosis: Right lower quadrant pain, blind loop cecum Proposed Procedure: Operation Date: 03/29/20 08:45 Proposed Procedures p Colonoscopy [id number](Not Applicable) - David Gautam MD Was Beta Javier taken within 24 hours: Yes (no) Last intake: Intake Last Liquid Date 03/28/20 Last Liquid Time 23:00 Last Solid Date 03/27/20 Last Solid Time 22:00 Exam: Pre-Anes Outpt Exam: oriented x 3 Airway: Submandibular: WNL Cervical ROM: Other (decreased neck extension) MP: 1 CV/HEM: CV/HEM: HTN Anesthetic Plan: ASA status: 2 Meds/Allergies Current Medications: Current Medications Generic Name Dose Route Start Last Admin Trade Name Freq PRN Reason Stop Dose Admin Sodium Chloride 1,000 mls @ 30 ml s/hr 03/29/20 07:30 03/29/20 07:32 Sodium Chloride 0.9% IV 03/30/20 07:29 30 mls/hr .Q24H SHAWNA Administration PFSH Anesthesia PFSH: Medical History Ductal carcinoma in situ (DCIS) of breast HTN (hypertension) Hx of colonic polyps Hypercholesteremia Palpitations Surgical History H/O lumpectomy Hx of hemorrhoidectomy Hx of hysterectomy Hx of tubal ligation Family History Father CAD (coronary artery disease) Family history of premature coronary artery disease Hypertension Mother CAD (coronary artery disease) Family history of premature coronary artery disease Hypertension Grandmother Stroke Denies family history of Diabetes Clotting disorder Dementia Hyperlipidemia Psychiatric illness Chronic kidney disease (CKD) Suicide Anesthesia complication Bleeding disorder Lung disease Cancer Social History Smoking and tobacco status: former smoker Quit status (tobacco): has quit using tobacco Alcohol intake: current Alcohol intake frequency: few times a month Data Anesthesia Cardiac Studies: No Data to Display
--- NOTE | 2020-03-29 08:58 | W.PM.OPSUD ---
Surgery/Procedure H&P Update DATE OF PROCEDURE: March 29, 2020 DATE H&P PERFORMED: 03/21/20 H&P UPDATE INFORMATION: I have reviewed H&P completed within last 30 days, I have examined patient prior to procedure and No changes to prior documentation PREOP DIAGNOSIS: Right lower quadrant pain, blind loop cecum PLANNED PROCEDURE: Operation Date: 03/29/20 08:45 Proposed Procedures p Colonoscopy [id number](Not Applicable) - David Gautam MD
[2020-03-29 09:26] VITALS: BP 113/76; PULSE 72; RESP 16; TEMP 36.2; O2SAT 96
[2020-03-29 09:34] VITALS: BP 119/69; PULSE 66; RESP 18; O2SAT 98
--- NOTE | 2020-03-29 09:48 | ANE.PACU2 ---
Inpatient post-anesthesia follow up: Airway intact: Yes Vital signs: Temperature 97.1 F Pulse Rate 66 Respiratory Rate 18 Blood Pressure 119/69 Pulse Oximetry 98 Oxygen Delivery Me thod Room Air Oxygen Flow Rate 3 Fraction of Inspir ed Oxygen Hydration adequate: Yes Nausea and vomiting: No Pain level: 1 Mental status: Baseline
== END 2020-03-29 09:46 | disposition home or self-care (01) ==
PROVIDERS: PCP Electrodiagnostic Medicine; Visit Provider Surgery
PROC: 0DJD8ZZ Inspection of Lower Intestinal Tract, Via Natural or Artificial Opening Endoscopic (ICD-10-PCS; CPT 45378; principal; 2020-03-29 08:45)
DX: R10.31 Right lower quadrant pain (principal); I10 Essential (primary) hypertension; Z85.3 Personal history of malignant neoplasm of breast; Z86.010 Personal history of colon polyps; E78.00 Pure hypercholesterolemia, unspecified; Z82.49 Family history of ischemic heart disease and other diseases of the circulatory system; Z87.891 Personal history of nicotine dependence
CPT/HCPCS: 12345; 45378; J2704; J7030

== ENCOUNTER 2020-04-07 08:31 | Outpatient (CLI) | payer OTHER, MEDICARE, SELFPAY ==
--- NOTE | 2020-04-07 08:45 | US_ITS ---
WS: [id number] Abdominal ultrasound, limited. HISTORY: Abdominal pain. The appendix is not identified. No soft tissue masses, fluid or adenopathy is identified. US/US abdomen limited [id number] IMPRESSION: The appendix is not identified. No RIGHT lower quadrant mass. Ultrasound would not detect the dilated area at the cecal tip very well.
== END 2020-04-07 08:32 | disposition home or self-care (01) ==
LOC: RAD 08:41
PROVIDERS: PCP Electrodiagnostic Medicine; Visit Provider Surgery
DX: R10.31 Right lower quadrant pain (principal)
CPT/HCPCS: 76705

== ENCOUNTER 2020-04-14 07:28 | Outpatient (CLI) | payer OTHER, MEDICARE, SELFPAY ==
--- NOTE | 2020-04-14 08:00 | US_ITS ---
WS: [id number] Pelvic ultrasound, 04/14/2020 Clinical Data: lower abdominal pain Comparison: None. Findings: The uterus is absent. The ovaries are absent.There is no fluid or mass in the cul-de-sac. US/US pelvic limited [id number] Impression: 1. Probable hysterectomy and bilateral salpingo-oophorectomy. 2. Negative for mass or fluid in the cul-de-sac.
== END 2020-04-14 07:29 | disposition home or self-care (01) ==
PROVIDERS: PCP Electrodiagnostic Medicine; Visit Provider Surgery
DX: R10.31 Right lower quadrant pain (principal)
CPT/HCPCS: 76857

== ENCOUNTER → 2020-04-15 08:44 | Outpatient (BNVA) | payer OTHER, MEDICARE, SELFPAY | PROVIDERS: PCP Electrodiagnostic Medicine; Visit Provider Internal Medicine | DX: Z01.812 Encounter for preprocedural laboratory examination (principal); R10.31 Right lower quadrant pain | CPT/HCPCS: 87635 ==

== ENCOUNTER 2020-04-20 06:30 | Day surgery (SDC) | payer OTHER, MEDICARE, SELFPAY ==
[2020-04-19 10:39] VITALS: BMI 29.0
[2020-04-20] VITALS (12 sets, daily range): BP systolic 108–136; BP diastolic 64–91; PULSE 47–82; RESP 15–18; TEMP 36.3–36.8; O2SAT 95–99
--- NOTE | 2020-04-20 06:56 | W.PM.OPSUD ---
Surgery/Procedure H&P Update DATE OF PROCEDURE: April 20, 2020 DATE H&P PERFORMED: 04/12/20 H&P UPDATE INFORMATION: I have reviewed H&P completed within last 30 days, I have examined patient prior to procedure and No changes to prior documentation PREOP DIAGNOSIS: Cecal diverticulum PLANNED PROCEDURE: Operation Date: 04/20/20 08:00 Proposed Procedures p Laparoscopy(Not Applicable) - David Gautam MD s possble Colon Resection(Not Applicable) - David Gautam MD
[2020-04-20] MEDS: sodium chloride 0.9% 1,000 ML 30 ML IV (07:01)
--- NOTE | 2020-04-20 07:04 | P.ANESASSM_ITS ---
Pre-Anesthetic Assessment Pre-Anesthetic Assessment: Height/Weight: Height 1.68 m Weight 81.647 kg Temp Pulse Resp BP Pulse Ox 98.2 F 82 18 136/91 95 04/20/20 06:39 04/20/20 06:39 04/20/20 06:39 04/20/20 06:39 04/20/20 06:39 Preop Diagnosis: Cecal diverticulum Proposed Procedure: Operation Date: 04/20/20 08:00 Proposed Procedures p Laparoscopy(Not Applicable) - David Gautam MD s possble Colon Resection(Not Applicable) - David Gautam MD Familial anesthetic complications: None Was Beta Javier taken within 24 hours: Yes Last intake: Intake Last Liquid Date 04/19/20 Last Liquid Time 23:00 Last Solid Date 04/18/20 Last Solid Time 20:00 Social: Social History: No alcohol and No tobacco Exam: Pre-Anes Outpt Exam: alert, oriented x 3, clear to auscultation mateusz aterally and regular rate & rhythm Airway: Cervical ROM: WNL MP: 1 Dentition: Full Pulmonary: Pulmonary: None reported CV/HEM: CV/HEM: HTN and Palp Metabolic: Comments: metabolic syndrome Musc/skel: Musc/skel: Lower Back Pain Anesthetic Plan: ASA status: 2 Anesthesia: General Risk of > 500 ml blood loss (7ml/kg in children): No Meds/Allergies Current Medications: Current Medications Generic Name Dose Route Start Last Admin Trade Name Freq PRN Reason Stop Dose Admin Sodium Chloride 1,000 mls @ 30 ml s/hr 04/20/20 06:45 04/20/20 07:01 Sodium Chloride 0.9% IV 04/21/20 06:44 30 mls/hr .Q24H SHAWNA Administration PFSH Anesthesia PFSH: Medical History Ductal carcinoma in situ (DCIS) of breast HTN (hypertension) Hx of colonic polyps Hypercholesteremia Palpitations Surgical History H/O lumpectomy Hx of hemorrhoidectomy Hx of hysterectomy Hx of tubal ligation Status post colonoscopy (03/29/20) Family History Father CAD (coronary artery disease) Family history of premature coronary artery disease Hypertension Mother CAD (coronary artery disease) Family history of premature coronary artery disease Hypertension Grandmother Stroke Denies family history of Diabetes Clotting disorder Dementia Hyperlipidemia Psychiatric illness Chronic kidney disease (CKD) Suicide Anesthesia complication Bleeding disorder Lung disease Cancer Social History Smoking and tobacco status: former smoker Quit status (tobacco): has quit using tobacco Alcohol intake: current Alcohol intake frequency: few times a month Data Anesthesia Cardiac Studies: No Data to Display
[2020-04-20] MEDS: metroNIDAZOLE IV 500 MG/100 ML PREMIX 100 MG IV (07:41)
[2020-04-20] MEDS: fentaNYL 50 mcg/mL INJ 2mL IVP ×2 (09:28→09:35)
--- NOTE | 2020-04-20 09:36 | ANE.PACU2 ---
Inpatient post-anesthesia follow up: Airway intact: Yes Vital signs: Temperature 97.4 F Pulse Rate 58 Respiratory Rate 18 Blood Pressure 115/71 Pulse Oximetry 99 Oxygen Delivery Me thod Room Air Oxygen Flow Rate 8 Fraction of Inspir ed Oxygen Hydration adequate: Yes Nausea and vomiting: No Pain level: 6 Mental status: Baseline
--- NOTE | 2020-04-20 09:39 | P.OP_ITS ---
Operative Report Date of procedure: April 20, 2020 Pre-op Diagnosis: Cecal diverticulum, right lower quadrant pain Post-op Diagnosis: Incarcerated ventral hernia in the right lower quadrant containing preperitoneal fat Procedure Done: Laparoscopic repair of incarcerated ventral hernia with UltraPro 12 x 10 cm mesh Pathology: none sent Surgeon: David Gautam Anesthesia: General Condition: stable Disposition: PACU Brief History: This is a 64-year-old female who had been dealing with right lower quadrant pain for many months now. Patient always complained about a sensation of hernia on that side but after 2 CT abdomen pelvis there was no o bvious hernia noted. On physical exam I could not appreciate hernia. She had a cecal diverticulum which are increased in size and measures 3.7 cm. The plan was for diagnostic laparoscopy, partial cecectomy, possible bowel resection based on the assumption that the cecal diverticulum was contributing to her symptoms. Procedure: The patient was taken to the operating room and intubated under general anesthesia after IV antibiotic had been administered. A Doyle catheter was placed and the abdomen was prepped and draped in a sterile manner. Using a 15 blade 1 cm infraumbilical incision was made and using open Peters technique the peritoneal cavity was entered and a 12 mm port was placed and 15 mm of pneumoperitoneum was created. A 10 mm 30 degrees scope was introduced. 2 separate 5 mm ports were placed in the suprapubic region and left lower quadrant under direct visualization. The cecum was adherent to the abdominal wall and lysis of adhesions was performed to mobilize the cecum. The line of Toldt was opened laterally and the cecum was mobilized medially. The ileum was examined and the cecum appeared normal. The cecal diverticulum could not be directly seen and was most likely under the mesentery. Examination of the right lower quadrant revealed what appeared to be possible hernia. The peritoneum was opened up using electrocautery and scissors revealing a hernia in the right lower quadrant containing preperitoneal fat. The preperitoneal fat was reduced and excised revealing a defect which measured about 3 x 3 cm. Using spinal needle the hernia was measured and the size of the mesh was planned. An ultraPro 12 x 10 cm mesh was cut and introduced to the peritoneal cavity and placed against the right lower quadrant abdominal wall using Securestraps. The excess peritoneum was excised using scissors and using Securestraps the peritoneum was approximated to cover the mesh completely. An Endo Catch bag was introduced through the 12 mm port and the excised hernia sac and the preperitoneal fat was removed. 60 cc of saline, Exparel and 0.5% Marcaine was infiltrated for a TAP block under laparoscopic visualization. All 3 ports were removed under direct visualization and there was no evidence of bleeding noted at the port sites. The fascia at the umbilical port was closed using [id number] Vicryl suture, subcutaneous tissues approximated using interrupted 3-0 Vicryl suture and skin at all 3 port sites were closed using running subcuticular 4-0 Monocryl suture and Dermabond. The Doyle catheter was removed and the patient was extubated and transferred to recovery room in stable condition.
--- NOTE | 2020-04-20 09:49 | SUR.PHASEI ---
PT AWAKE ALERT , STATES PAIN IS BETTER, PT OK WITH TAKING PO PAIN MED IN OPS , ABD SOFT 3 SITES D/I
[2020-04-20] MEDS: HYDROcodone-acetaminophen 5-325 mg Tablet 1 TAB PO (10:19)
== END 2020-04-20 10:59 | disposition home or self-care (01) ==
PROVIDERS: PCP Electrodiagnostic Medicine; Visit Provider Surgery
PROC: (CPT 49320; principal; 2020-04-20 08:00)
PROC: 0WQF4ZZ Repair Abdominal Wall, Percutaneous Endoscopic Approach (ICD-10-PCS; CPT 49653; 2020-04-20 08:00)
DX: K43.6 Other and unspecified ventral hernia with obstruction, without gangrene (principal); K66.0 Peritoneal adhesions (postprocedural) (postinfection); K57.30 Diverticulosis of large intestine without perforation or abscess without bleeding; I10 Essential (primary) hypertension; E88.81 Metabolic syndrome and other insulin resistance; E78.00 Pure hypercholesterolemia, unspecified; Z85.3 Personal history of malignant neoplasm of breast; Z87.891 Personal history of nicotine dependence
CPT/HCPCS: 49653; 12345; 51702; C9290; J0690; J1100; J1885; J2370; J2405; J2704; J2710; J3010; J3490; J7030; S0030

== ENCOUNTER 2020-06-07 09:12 | Outpatient (CLI) | payer OTHER, MEDICARE, SELFPAY ==
--- NOTE | 2020-06-07 13:46 | ONC FU_ITS ---
Dr. Yanez Patient Follow-Up Note Patient: Anna Prater Unit #: [id number]: 1955 Dicatated By: Beltran Yanez M.D.Date of Visit:Jun 07, 2020 Onc Med Follow-up/Prog Note Chief Complaint: Breast cancer. 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 She had presented with an abnormal screening mammogram. That study, from 06/23/2019, was BI-RADS 0, incomplete. It showed suspicious heterogeneous calcifications in the lower inner quadrant of the right breast. Diagnostic mammogram on 08/25/2019 was BI-RADS 4B, suspicious. It showed 2 clusters of heterogeneous punctate calcifications both in a ductal distribution in the lower inner right breast. Biopsy was recommended. She then underwent stereotactic right breast biopsy with vacuum assistance at both sites. The more superior posterior and medial lesion showed high nuclear grade ductal carcinoma in situ with solid and cribriform pattern and with comedo type necrosis. There was no invasive malignancy identified. The more inferior lesion also showed high-grade ductal carcinoma in situ with central comedo type necrosis. ER and MN receptors were both strongly positive at 98% and 100% respectively. On 10/22/2019 she underwent right breast lumpectomy. Pathology showed no identifiable discrete mass. Biopsy changes were noted with very focal surrounding atypical intraductal hyperplasia. There was no invasive carcinoma or residual ductal carcinoma in situ identified. I had seen her initially on 11/27/2019. Given the very small size of her tumor and the adequate excision margin, I felt that it was acceptable to manage it without radiation. She was offered the option of adjuvant hormonal therapy with tamoxifen, but she opted not to have treatment. As such, she is being followed on observation/expectant management. Her other medical illnesses include hypertension, hyperlipidemia, and type 2 diabetes. She has a history of cardiac arrhythmia. She had her first child at age 17. She had hysterectomy without oophorectomy in 1990. She underwent natural menopause around age 49. She had no hormone replacement therapy. There is no family history of breast cancer or ovarian cancer. She has a history of smoking 1-1/2 packs of cigarettes daily for 15 years. She had quit smoking at age 34. She is seen for follow-up visit. She has been feeling good generally. She says her energy is fair. She has normal activity. ECOG score is 0. Her appetite is good. She has no fever, night sweats, or hot flashes. She does not complain of shortness of breath, cough, or chest pain. She has no GI or complaints. She does have some joint pain, but nothing significant. She sometimes has headache and she sometimes has dizziness. She has no focal neurologic symptoms. Medications: Lisinopril 1 Tablet (of 20 mg) Oral daily, Magnesium 1 Tablet (of 400 mg) Oral daily, Metoprolol Succinate ER 1 Tablet (of 100 mg) Tablet SR 24 HR Oral daily Allergies: No Known Allergies. Review of Systems: Constitutional - She generally feels good. Her energy is fairl. She has normal activity without restrictions. Her appetite is good and her weight is stable. No fever, night sweats, or hot flashes. ECOG score is 0, ENMT - She has sinus congestion/drainage. No mouth sores. No sore throat or difficulty swallowing, Hematologic/Lymphatic - No abnormal bruising or bleeding, Respiratory - No shortness of breath. No cough. No pleuritic pain or hemoptysis, Cardiovascular - No angina pain. No palpitations, Gastrointestinal - No nausea or vomiting. No heartburn or acid reflux. No diarrhea or constipation. No blood in the stool or black stools, Genitourinary (F) - No dysuria or hematuria. No urinary frequency. No urgency or incontinence, Musculoskeletal - She has occasional joint pain, none today, Integumentary - No skin complications, Neurologic - No headache. She has occasional dizziness. No numbness or tingling. No other focal neurologic symptoms, Psychiatric - No anxiety or depression. No insomnia. Vital Signs: Performed on Jun 07, 2020 09:05 Height - 66.00 in Weight - 180 lbs (HIGH) BSA - 1.91 sq.m BMI - 29.05 Temperature - 97.3 F (LOW) Pulse - 67 /min Respiration - 16 /min BP - 128/78 mm(hg) O2 Sat - 98 % Pain - 0 Physical Examination: Constitutional - She looks good generally, Eyes - Sclerae nonicteric. Conjunctivae clear, ENMT - No lesions noted in the oral cavity, Hematologic/Lymphatic - No cervical or clavicular adenopathy, Respiratory - Lungs are clear with good air movement bilaterally, Cardiovascular - Heart rhythm is regular. There is no murmur, gallop, or rub noted, Breasts - There are no breast masses noted. There is no axillary adenopathy, Abdomen - Soft. Liver and spleen are not enlarged. There is no abdominal mass or ascites noted and there is no inguinal adenopathy, Extremities - No edema. Dorsalis pedis pulses are palpable bilaterally, Integumentary - There is a small pigmented lesion on the plantar aspect of the left foot. It appears to be subepidermal, Neurologic - No focal neurologic deficits noted. Impression: 1. 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 2. She underwent stereotactic biopsy of 2 lesions in the lower inner right breast quadrant on 09/22/2019. 3. She underwent right breast lumpectomy on 10/22/2019. Pathology biopsy site changes with focal surrounding atypical intraductal hyperplasia with no invasive carcinoma or residual ductal carcinoma in situ identified. Her other medical illnesses include: 4. Hypertension. 5. Hyperlipidemia. 6. Type 2 diabetes, currently not requiring medication. 7. She has a history of cardiac arrhythmia. Given the very small size of her primary lesion in the adequate excision margin, I felt that it was acceptable to manage it without radiation. She was offered the option of adjuvant hormonal therapy with tamoxifen, which she declined. As such, she has been followed on observation/expectant management. Overall, she has been doing well clinically, thus far with no evidence of recurrence of the breast cancer. Plan: She remains on observation/expectant management. She will be scheduled for her yearly mammograms, which will be due next month. I will then just plan yearly follow-up visits to coordinate with her mammogram schedule. Signed By: Beltran Yanez M.D. <<Signature on File>>
== END 2020-06-07 09:13 | disposition home or self-care (01) ==
LOC: ONCMED 09:13
PROVIDERS: PCP Electrodiagnostic Medicine; Visit Provider Internal Medicine Medical Oncology
DX: D05.11 Intraductal carcinoma in situ of right breast (principal); Z17.0 Estrogen receptor positive status [ER+]; I10 Essential (primary) hypertension; E78.5 Hyperlipidemia, unspecified; E11.9 Type 2 diabetes mellitus without complications; I49.9 Cardiac arrhythmia, unspecified; Z79.899 Other long term (current) drug therapy
CPT/HCPCS: G0463

== ENCOUNTER 2020-07-08 09:57 | Outpatient (CLI) | payer OTHER, MEDICARE, SELFPAY ==
--- NOTE | 2020-07-08 10:12 | MM_ITS ---
WS: [id number] BILATERAL DIGITAL DIAGNOSTIC MAMMOGRAM MAMMOGRAPHY WITH CAD CLINICAL INFORMATION: HX OF BREAST CA COMPARISON: TECHNIQUE: Bilateral CC, MLO, and ML views. FINDINGS: Scattered fibroglandular densities bilaterally. Postoperative changes lumpectomy right breast. Associ ated parenchymal scarring. No suspicious calcifications right breast. Incidental punctate calcificati ons left breast. No suspicious focal mass, asymmetry, calcifications, or architectural distortion. No evidence of edna gnancy. MM/[id number] IMPRESSION: BI-RADS: 2-Benign FOLLOW UP: 1 Year Follow-up Recommend return to annual screening mammography.
== END 2020-07-08 09:58 | disposition home or self-care (01) ==
LOC: RADSHAW 10:01
PROVIDERS: PCP Electrodiagnostic Medicine; Visit Provider Internal Medicine Medical Oncology
DX: Z85.3 Personal history of malignant neoplasm of breast (principal)
CPT/HCPCS: 77066

== ENCOUNTER 2020-09-20 08:36 | Outpatient (CLI) | payer OTHER, MEDICARE, SELFPAY ==
--- NOTE | 2020-09-20 08:49 | XRR_ITS ---
PROCEDURE INFORMATION: Exam: XR Lumbosacral Spine, 2 or 3 Views Exam date and time: 09/20/2020 9:10 AM Age: 65 years old Clinical indication: Low back pain TECHNIQUE: Imaging protocol: XR of the lumbosacral spine, 2 or 3 views. COMPARISON: CT abdomen pelvis w con* [id number] 03/15/2020 9:46 AM FINDINGS: Bones/joints: There is mild dextro curvature of lumbar spine. There is stable grade 1 anterolisthesis L4 on L5. There is disc height loss greatest at L5-S1 followed by T11-T12 where there is endplate sclerosis. There are facet degenerative changes greatest in the lower spine. Vertebral body heights are maintained without evidence of acute fracture. There is bony density along lateral margin spine at L4-L5 related to postoperative change. Soft tissues: Unremarkable. Vasculature: There is aortoiliac calcification and mild fusiform dilatation infrarenal aorta is seen on CT. XR/XR lumbar spine 2-3V* [id number] IMPRESSION: Degenerative changes as described.
== END 2020-09-20 08:37 | disposition home or self-care (01) ==
PROVIDERS: PCP Electrodiagnostic Medicine; Visit Provider Electrodiagnostic Medicine
DX: M62.830 Muscle spasm of back (principal); M54.5 Low back pain
CPT/HCPCS: 72100

== ENCOUNTER 2020-09-27 07:11 | Outpatient (RCR) | payer OTHER, MEDICARE, SELFPAY | END 2020-10-16 23:59 | disposition home or self-care (01) | LOC: SPT 07:11 | PROVIDERS: PCP Electrodiagnostic Medicine; Visit Provider Electrodiagnostic Medicine | DX: M47.817 Spondylosis without myelopathy or radiculopathy, lumbosacral region (principal); M51.17 Intervertebral disc disorders with radiculopathy, lumbosacral region; M62.830 Muscle spasm of back | CPT/HCPCS: 97110; 97162 ==

== ENCOUNTER 2020-10-17 06:00 | Outpatient (RCR) | payer OTHER, MEDICARE, SELFPAY | END 2020-11-16 23:59 | disposition home or self-care (01) | LOC: SPT 06:00 | PROVIDERS: PCP Electrodiagnostic Medicine; Visit Provider Electrodiagnostic Medicine | DX: M47.817 Spondylosis without myelopathy or radiculopathy, lumbosacral region (principal); M51.17 Intervertebral disc disorders with radiculopathy, lumbosacral region; M62.830 Muscle spasm of back; M54.5 Low back pain | CPT/HCPCS: 97110 ==

== ENCOUNTER 2021-05-11 07:20 | Outpatient (CLI) | payer OTHER, MEDICARE, SELFPAY ==
[2021-05-11 07:30] VITALS: BMI 29.9
--- NOTE | 2021-05-11 07:36 | NMCV_ITS ---
NM bettye perf SPECT r/s* [id number] Anna Prater Age: 65 Gender: F : 1955 Exam Date: 05/11/2021 08:53 Ordering Phys: Rajan Juárez MD ([email or web address]) Technologist: PATRICIA Diaz Exam Location: [facility] Indications: CHEST PAIN STRESS TEST Please see separate stress test report in [facility] for full findings IMAGE PROTOCOL Rest/Stress 1 Exercise Day Radiopharmaceutical Dose (mCi) Administration Site Administered by Rest: Tc-99m 10.2 IV PATRICIA Diaz Sestamibi Stress:Tc-99m 32.8 IV PATRICIA Connor Sestamibi Rest: 11-May-2021 60 Discovery 630 Stress: 11-May-2021 30 Discovery 630 Radiopharmaceutical was injected at 87 % maximum heart rate. Images obtained in supine and prone position. SPECT RESULTS Technical Quality: Excellent Raw Data Analysis: Normal Image Corrections: No attenuation or motion correction applied Summed Stress Score: 1 Summed Rest Score: 3 Summed Difference Score: 1 PERFUSION FINDINGS Small area of significantly reduced uptake noted in apex of the left ventricle over the rest images which improved and corrected over stress images suggestive of artifact FUNCTIONAL RESULTS (calculated via Gated SPECT) Stress Image LV EF (%): 83 Stress EDV (mL):58 TID: 0.78 Stress ESV (mL):10 Rest Image LV EF (%): 83 FUNCTIONAL FINDINGS: There is normal left ventricular systolic function. IMPRESSIONS Myocardial perfusion imaging is normal. EKG segment will be documented separately. Rajan Juárez MD (Electronically Signed) Final Date: 11 May 2021 11:24 S
[2021-05-11 10:33] VITALS: BP 149/86; PULSE 109
== END 2021-05-11 07:21 | disposition home or self-care (01) ==
LOC: RAD 07:23 → CDL 07:25
PROVIDERS: PCP Electrodiagnostic Medicine; Visit Provider Internal Medicine Cardiovascular Disease
DX: R07.9 Chest pain, unspecified (principal)
CPT/HCPCS: 78452; 93017; A9500

== ENCOUNTER 2021-06-06 11:52 | Outpatient (CLI) | payer OTHER, MEDICARE, SELFPAY | END 2021-06-06 11:53 | disposition home or self-care (01) | LOC: SLEEP 11:53 | PROVIDERS: PCP Electrodiagnostic Medicine; Visit Provider Internal Medicine Cardiovascular Disease | DX: G47.33 Obstructive sleep apnea (adult) (pediatric) (principal) | CPT/HCPCS: G0399 ==

== ENCOUNTER 2021-07-26 09:17 | Outpatient (CLI) | payer OTHER, MEDICARE, SELFPAY ==
--- NOTE | 2021-07-26 09:23 | MM_ITS ---
WS: [id number] Exam: [id number] Date/Time of Exam: 07/26/2021 9:23 AM Reason For Exam: HX OF BREAST CA VIEWS: MLO, CC, and ML views both breasts. Comparison made with prior exam of 07/08/2020. Findings: Stable postoperative changes identified in the medial lower quadrant of the right breast. Stable smal l ovoid nodule in the anterior lateral right breast. No significant abnormal finding in the left l[address]. Scattered fibroglandular densities. MM/[id number] Impression: BI-RADS: 2-Benign FOLLOW-UP: 1 Year Follow-up This mammogram was also analyzed by the Computer Aided Detection System R2 Imag e [employer].
== END 2021-07-26 09:18 | disposition home or self-care (01) ==
LOC: RADSHAW 09:21
PROVIDERS: PCP Electrodiagnostic Medicine; Visit Provider Internal Medicine Medical Oncology
DX: Z85.3 Personal history of malignant neoplasm of breast (principal)
CPT/HCPCS: 77066

== ENCOUNTER 2021-08-21 14:23 | Outpatient (CLI) | payer OTHER, MEDICARE, SELFPAY ==
--- NOTE | 2021-08-25 16:52 | ONC FU_ITS ---
Dr. Yanez Patient Follow-Up Note Patient: Anna Prater Unit #: [id number]: 1955 Dicatated By: Beltran Yanez M.D.Date of Visit:Aug 21, 2021 Onc Med Follow-up/Prog Note Chief Complaint: Breast cancer. 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 She had presented with an abnormal screening mammogram. That study, from 06/23/2019, was BI-RADS 0, incomplete. It showed suspicious heterogeneous calcifications in the lower inner quadrant of the right breast. Diagnostic mammogram on 08/25/2019 was BI-RADS 4B, suspicious. It showed 2 clusters of heterogeneous punctate calcifications both in a ductal distribution in the lower inner right breast. Biopsy was recommended. She then underwent stereotactic right breast biopsy with vacuum assistance at both sites. The more superior posterior and medial lesion showed high nuclear grade ductal carcinoma in situ with solid and cribriform pattern and with comedo type necrosis. There was no invasive malignancy identified. The more inferior lesion also showed high-grade ductal carcinoma in situ with central comedo type necrosis. ER and RI receptors were both strongly positive at 98% and 100% respectively. On 10/22/2019 she underwent right breast lumpectomy. Pathology showed no identifiable discrete mass. Biopsy changes were noted with very focal surrounding atypical intraductal hyperplasia. There was no invasive carcinoma or residual ductal carcinoma in situ identified. I had seen her initially on 11/27/2019. Given the very small size of her tumor and the adequate excision margin, I felt that it was acceptable to manage it without radiation. She was offered the option of adjuvant hormonal therapy with tamoxifen, but she opted not to have treatment. As such, she is being followed on observation/expectant management. Her other medical illnesses include hypertension, hyperlipidemia, and type 2 diabetes. She has a history of cardiac arrhythmia. She had her first child at age 17. She had hysterectomy without oophorectomy in 1990. She underwent natural menopause around age 49. She had no hormone replacement therapy. There is no family history of breast cancer or ovarian cancer. She has a history of smoking 1-1/2 packs of cigarettes daily for 15 years. She had quit smoking at age 34. She is seen for a follow-up visit. She has been feeling okay, though she says she does not have a lot of energy, and there has been a decline in her activity. She is still doing light work at home. ECOG score is 1. She has good appetite. She has not had fever. She still has a little bit of hot flashes, but she says they are dwindling. Her main complaint is that she has tended to have high blood pressure when she gets up in the morning. She also complains of having shortness of breath and fast heart rate with activity. She started CPAP for obstructive sleep apnea, but thus far with no improvement in those symptoms. She has no GI or complaints. She has some joint pain, which is just attributable to age. She has occasional headaches and she sometimes has dizziness. She has a little bit of numbness in her fingers. Medications: hydroCHLOROthiazide 1 Tablet (of 12.5 mg) Oral every am, Lisinopril 1 Tablet (of 20 mg) Oral daily, Magnesium 1 Tablet (of 400 mg) Oral daily, Metoprolol Succinate ER 1 Tablet (of 100 mg) Tablet SR 24 HR Oral daily, Valsartan 1 Tablet (of 160 mg) Oral b.i.d. Allergies: No Known Allergies. Vital Signs: Performed on Aug 21, 2021 14:48 Height - 66.00 in Weight - 191 lbs (HIGH) BSA - 1.96 sq.m BMI - 30.83 (HIGH) Temperature - 97.2 F (LOW) Pulse - 81 /min Respiration - 16 /min BP - 134/84 mm(hg) O2 Sat - 95 % (LOW) Pain - 0 Fatigue - 3 Physical Examination: Constitutional - She looks good generally, Eyes - Sclerae nonicteric. Conjunctivae clear, ENMT - No lesions noted in the oral cavity, Hematologic/Lymphatic - No cervical or clavicular adenopathy, Respiratory - Lungs are clear with good air movement bilaterally, Cardiovascular - Heart rhythm is regular. There is no murmur, gallop, or rub noted, Breasts - There are no breast masses noted. There is no axillary adenopathy, Abdomen - Soft. Liver and spleen are not enlarged. There is no abdominal mass or ascites noted and there is no inguinal adenopathy, Extremities - No edema. She has good dorsalis pedis pulses bilaterally, Neurologic - No focal neurologic deficits noted. Problem List: 1. Multifocal high-grade ductal carcinoma in situ of the right breast, ER/RI positive. 2. Hypertension. 3. Hyperlipidemia. 4. Type 2 diabetes, currently not requiring medication. 5. She has a history of cardiac arrhythmia. 6. Obstructive sleep apnea. 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 She underwent stereotactic biopsy of 2 lesions in the lower inner right breast quadrant on 09/22/2019. She then underwent right breast lumpectomy on 10/22/2019. Pathology biopsy site changes with focal surrounding atypical intraductal hyperplasia with no invasive carcinoma or residual ductal carcinoma in situ identified. Given the very small size of her primary lesion in the adequate excision margin, I felt that it was acceptable to manage it without radiation. She was offered the option of adjuvant hormonal therapy with tamoxifen, which she declined. As such, she is being managed expectantly. During follow-up there has been some decline in her activity tolerance. She has had some issues with blood pressure control, and she is also having activity related shortness of breath and tachycardia. There has been no evidence, though, recurrence of her breast cancer. She is seeing Dr. Banks for management of the hypertension and cardiac symptoms. She will be scheduled for follow-up here in 1 year. Signed By: Beltran Yanez M.D. <<Signature on File>>
== END 2021-08-21 14:24 | disposition home or self-care (01) ==
LOC: ONCMED 14:26
PROVIDERS: PCP Electrodiagnostic Medicine; Visit Provider Internal Medicine Medical Oncology
DX: C50.311 Malignant neoplasm of lower-inner quadrant of right female breast (principal); Z17.0 Estrogen receptor positive status [ER+]; I10 Essential (primary) hypertension; E78.5 Hyperlipidemia, unspecified; E11.9 Type 2 diabetes mellitus without complications; Z86.79 Personal history of other diseases of the circulatory system; G47.33 Obstructive sleep apnea (adult) (pediatric); Z90.710 Acquired absence of both cervix and uterus; Z87.891 Personal history of nicotine dependence
CPT/HCPCS: G0463

== ENCOUNTER → 2022-02-08 16:35 | Outpatient (BNVA) | payer OTHER, MEDICARE, SELFPAY | PROVIDERS: PCP Family Medicine; Visit Provider Family Medicine | DX: I10 Essential (primary) hypertension (principal); R73.03 Prediabetes; H57.12 Ocular pain, left eye | CPT/HCPCS: 80053; 83036; 85025 ==

== ENCOUNTER 2022-02-13 08:49 | Outpatient (CLI) | payer OTHER, MEDICARE, SELFPAY ==
[2022-02-15 18:42] LABS: Erythrocyte Sedimentation Rate 2 mm/hr (0-15)
== END 2022-02-13 08:50 | disposition home or self-care (01) ==
PROVIDERS: PCP Family Medicine; Visit Provider Family Medicine
DX: I10 Essential (primary) hypertension (principal); R73.03 Prediabetes; H57.12 Ocular pain, left eye
CPT/HCPCS: 85651

== ENCOUNTER → 2022-04-27 08:04 | Outpatient (BNVA) | payer OTHER, MEDICARE, SELFPAY | PROVIDERS: PCP Family Medicine; Visit Provider Family Medicine | DX: N18.9 Chronic kidney disease, unspecified (principal); I10 Essential (primary) hypertension; H57.12 Ocular pain, left eye; E11.9 Type 2 diabetes mellitus without complications | CPT/HCPCS: 80048 ==

== ENCOUNTER 2022-06-04 13:47 | Outpatient (CLI) | payer OTHER, MEDICARE, SELFPAY ==
--- NOTE | 2022-06-04 13:45 | US_ITS ---
WS: [id number] RENAL ULTRASOUND URINARY BLADDER ULTRASOUND HISTORY: Worsening renal function COMPARISON: None available. TECHNIQUE: 2-D and color Doppler imaging of the kidney submitted. Right kidney: 6.6 cm x 3.1 cm x 2.7 cm. Atrophied kidney with no hydronephrosis. No solid mass. Cortical calcification measures 4 mm. There i s diffuse cortical thinning measuring 7.6 mm. Left kidney: 12.1 cm x 4.1 cm x 5.2 cm. Normal echogenicity with no hydronephrosis or mass. Aorta: Mild atherosclerosis aorta. Urinary Bladder: Bladder is well distended. No intraluminal filling defect. No significant post void residual. Post void residual is approximately 16 cc. US/US renal BI with PV bladder IMPRESSION: 1. Moderate RIGHT renal atrophy with diffuse cortical thinning. 2. No hydronephrosis. 3. Negative urinary bladder. No significant post void residual.
== END 2022-06-04 13:48 | disposition home or self-care (01) ==
LOC: RAD 13:47
PROVIDERS: PCP Family Medicine; Visit Provider Family Medicine
DX: N18.9 Chronic kidney disease, unspecified (principal); N26.1 Atrophy of kidney (terminal)
CPT/HCPCS: 76770; 76857

== ENCOUNTER → 2022-06-18 10:14 | Outpatient (BNVA) | payer OTHER, MEDICARE, SELFPAY | PROVIDERS: PCP Family Medicine; Visit Provider Family Medicine | DX: N26.1 Atrophy of kidney (terminal) (principal); E11.9 Type 2 diabetes mellitus without complications; R53.81 Other malaise; R53.83 Other fatigue; H57.12 Ocular pain, left eye; I10 Essential (primary) hypertension; R73.03 Prediabetes; Z00.00 Encounter for general adult medical examination without abnormal findings; Z23 Encounter for immunization; N18.9 Chronic kidney disease, unspecified; R20.0 Anesthesia of skin; Z51.81 Encounter for therapeutic drug level monitoring | CPT/HCPCS: 80053; 83036; 84443; 85025; 85651 ==

== ENCOUNTER 2022-06-20 09:00 | Emergency (ER) | payer OTHER, MEDICARE, SELFPAY ==
[2022-06-20] VITALS (13 sets, daily range): BP systolic 118–168; BP diastolic 74–128; PULSE 57–74; RESP 14–24; TEMP 36.2; O2SAT 96–100; BMI 27.4
--- NOTE | 2022-06-20 09:23 | ED_ITS ---
HPI - General Adult General: Chief complaint: General Medical Stated complaint: High bp Time Seen by Provider: 06/20/22 09:23 History of Present Illness: Ms. Prater is a 66-year-old lady with significant past medical history of hypertension, diabetes, CKD presenting to the emergency department due to uncontrolled blood pressure. She reports generalized illness including upper respiratory symptoms and generalized malaise for the past few days. Noted this morning that her blood pressure was significantly elevated compared to previous. She reports compliance with her medication regimen and even took her as needed amlodipine without significant improvement. Does note headache and nausea associated with high blood pressure. Density symptoms moderate to severe. Course has persisted. No other specific changes in health, exacerbating, or alleviating factors identified. Onset (ago): day(s) Severity: moderate Associated symptoms: Reports headache(s), malaise and nausea Review of Systems General: Reports: 10 or more systems reviewed and unremarkable except in HPI and below Const: Reports: malaise GI: Reports: nausea Neuro: Reports: headache(s) PFSH ED PFSH: Medical History Ductal carcinoma in situ (DCIS) of breast HTN (hypertension) Hx of colonic polyps Hypercholesteremia Palpitations Surgical History H/O lumpectomy Hx of hemorrhoidectomy Hx of hysterectomy Hx of tubal ligation S/P repair of ventral hernia (04/20/20) Status post colonoscopy (03/29/20) Family History Father CAD (coronary artery disease) Family history of premature coronary artery disease Hypertension Mother CAD (coronary artery disease) Family history of premature coronary artery disease Hypertension Grandmother Stroke Denies family history of Diabetes Clotting disorder Dementia Hyperlipidemia Psychiatric illness Chronic kidney disease (CKD) Suicide Anesthesia complication Bleeding disorder Lung disease Cancer Social History Quit status (tobacco): has quit using tobacco Alcohol intake: current Alcohol intake frequency: few times a month Physical Exam Const: COMMON NORMALS: alert GENERAL APPEARANCE: cooperative and well developed HENMT: COMMON NORMALS: normocephalic and atraumatic HEAD & SCALP: normocephalic and atraumatic Eye: COMMON NORMALS: conjunctivae normal CONJUNCTIVA: Yes conjunctivae normal SCLERA: sclerae normal Neck/C-Spine: COMMON NORMALS: supple GENERAL: Yes trachea midline Resp: COMMON NORMALS: clear to auscultation bilaterally EFFORT & INSPECTION : Yes able to speak in complete sentences AUSCULTATION: clear to auscultation bilaterally Cardio: COMMON NORMALS: regular rate and regular rhythm RATE: regular rate RHYTHM: regular rhythm GI: COMMON NORMALS: Soft to palpation PALPATION: Yes Soft to palpation and No Tenderness to palpation present (GI) Extremity: GENERAL: Yes normal exam except as noted and No edema Neuro: COMMON NORMALS: moves all extremities SENSORIUM/ORIENTATION: Yes alert and No Orientation impaired Psych: COMMON NORMALS: mental status grossly normal and Normal thought process present THOUGHT PROCESS: Normal thought process present Course Vital Signs: Vital signs: Vital Signs Temperature 97.2 F L 06/20/22 09:10 Pulse Rate 58 L 06/20/22 12:00 Respiratory Rate 16 06/20/22 12:00 Blood Pressure 118/80 06/20/22 12:15 Pulse Oximetry 97 06/20/22 11:30 Oxygen Delivery Me thod 06/20/22 09:10 MDM - General Adult Medical Decision Making 66-year-old lady presenting with blood pressure control issues and associated headache. Patient is nontoxic on exam and there are no focal neurologic deficits appreciated. EKG shows sinus rhythm with nonspecific ST segment abnormality, no STEMI Laboratory studies without evidence of endorgan dysfunction. 2-hour delta troponin is negative. Urinalysis and rapid viral studies negative. Patient feels improved with headache treatment and labetalol with improved blood pressure. Based on clinical history and exam as well as improvement with treatment no indication for imaging at this time. Given patient bradycardia with labetalol I will plan to initiate as needed clonidine in addition to patient's other as needed antihypertensives. Most likely etiology of patient's symptoms is viral syndrome associated with hypertension. The results of ED evaluation were discussed with the patient including prescriptions and/or symptomatic cares (if applicable) including appropriate and responsible use, followup plan, and return precautions. The patient verbalized understanding and felt safe for discharge. Medical Records I reviewed the patient's medical records. Lab Data I reviewed the patient's lab results. : 06/20/22 10:10 06/20/22 10:10 Laboratory Results WBC 4.7 10^3/uL (4.0-10.0) 06/20/22 10:10 Corrected WBC Cancelled 06/20/22 09:30 RBC 4.61 10^6/uL (4.1-5.3) 06/20/22 10:10 Hgb 14.1 g/dL (11.5-15.3) 06/20/22 10:10 Hct 42.8 % (37.0-47.0) 06/20/22 10:10 MCV 92.8 fl (81-99) 06/20/22 10:10 MCH 30.6 pg (28.0-34.0) 06/20/22 10:10 MCHC 32.9 g/dL (30.0-36.0) 06/20/22 10:10 RDW 13.5 % (12.1-15.1) 06/20/22 10:10 Plt Count 250 10^3/cmm (130-400) 06/20/22 10:10 MPV 10.3 fL (7.4-10.4) 06/20/22 10:10 Gran % Cancelled 06/20/22 09:30 Neut % (Auto) 66.9 % 06/20/22 10:10 Lymph % (Auto) 23.7 % 06/20/22 10:10 Meagher % (Auto) 7.5 % 06/20/22 10:10 Eos % (Auto) 1.3 % 06/20/22 10:10 Baso % (Auto) 0.4 % 06/20/22 10:10 Neut # (Auto) 3.13 10^3/uL (1.8-7.7) 06/20/22 10:10 Lymph # (Auto) 1.1 10^3/uL (0.8-4.8) 06/20/22 10:10 Meagher # (Auto) 0.4 10^3/uL (0.2-0.9) 06/20/22 10:10 Eos # (Auto) 0.1 10^3/uL (0.0-0.8) 06/20/22 10:10 Baso # (Auto) 0.0 10^3/uL (0.0-0.1) 06/20/22 10:10 Absolute Gran (auto) Cancelled 06/20/22 09:30 Nucleated RBC % (auto) 0 % 06/20/22 10:10 Nucleated RBCs # 0.0 /100WBC 06/20/22 10:10 Sodium 142 mmol/L (136-145) 06/20/22 10:10 Potassium 3.7 mmol/L (3.5-5.1) 06/20/22 10:10 Chloride 105 mmol/L (98-107) 06/20/22 10:10 Carbon Dioxide 24 mmol/L (22-29) 06/20/22 10:10 Anion Gap 16.7 (5-19) 06/20/22 10:10 BUN 21 mg/dL (8-23) 06/20/22 10:10 Creatinine 1.0 mg/dL (0.5-0.9) H 06/20/22 10:10 GFR Calculation 55.3 mL/min (90-130) L 06/20/22 10:10 Glucose 106 mg/dL (65-115) 06/20/22 10:10 Calculated Osmolality 297 mOsm/kg (285-295) H 06/20/22 10:10 Calcium 9.6 mg/dL (8.5-10.5) 06/20/22 10:10 Total Bilirubin 0.4 mg/dL (0.15-1.2) 06/20/22 10:10 AST 14 U/L (0-32) 06/20/22 10:10 ALT 14 U/L (0-33) 06/20/22 10:10 Alkaline Phosphatase 67 U/L (35-105) 06/20/22 10:10 Troponin T Baseline 10 ng/L (0-10) 06/20/22 10:10 Troponin T 120 Minute 13.80 ng/L (0-10) H 06/20/22 12:15 Delta Troponin T 3.80 ABS# (0-10) 06/20/22 12:15 NT-Pro-B Natriuret Pep 185 pg/mL (0-125) H 06/20/22 10:10 Total Protein 7.1 g/dL (6.6-8.7) 06/20/22 10:10 Albumin 4.2 g/dL (3.5-5.2) 06/20/22 10:10 Globulin 2.9 g/dL (1.3-4.6) 06/20/22 10:10 TSH 0.74 uIU/mL (0.27-4.20) 06/20/22 10:10 Urine Color Yellow (Yellow) 06/20/22 10:00 Urine Appearance Clear (CLEAR) 06/20/22 10:00 Urine pH 5 (5-7) 06/20/22 10:00 Ur Specific [place] 1.005 (1.005-1.030) 06/20/22 10:00 Urine Protein Neg (Negative) 06/20/22 10:00 Urine Glucose (UA) Norm (Normal) 06/20/22 10:00 Urine Ketones Negative (Negative) 06/20/22 10:00 Urine Blood Neg (Negative) 06/20/22 10:00 Urine Nitrate Negative (Negative) 06/20/22 10:00 Urine Bilirubin Neg (Negative) 06/20/22 10:00 Urine Urobilinogen Norm mg/dL (Negative) 06/20/22 10:00 Ur Leukocyte Esterase Negative (Negative) 06/20/22 10:00 Influenza Type A Ag negative (Negative) 06/20/22 10:00 Influenza Type B Ag negative (Negative) 06/20/22 10:00 SARS-CoV-2 Ag (Rapid) negative (Negative) 06/20/22 10:00 Discharge Plan Discharge Patient Disposition: Home Clinical Impression: HTN (hypertension), Headache, Malaise and fatigue Condition: Stable Prescriptions: New Reglan 10 mg tablet 10 mg PO Q6H PRN (Reason: headache) Qty: 10 0RF clonidine HCl 0.1 mg tablet 0.1 mg PO BID PRN (Reason: hypertension) Qty: 30 0RF No Action atorvastatin 40 mg tablet 40 mg PO DAILY multivitamin Tablet 1 tab PO DAILY acetaminophen 325 mg tablet 325 mg PO QID PRN aspirin [Adult Low Dose Aspirin] 81 mg tablet,delayed release (DR/EC) 81 mg PO DAILY PRN cyclobenzaprine 10 mg tablet 10 mg PO ONCE PRN (Reason: muscle spasm) valsartan 160 mg tablet 160 mg PO BID Label Comments: Take 2 tablets by mouth every night. omeprazole 40 mg capsule,delayed release(DR/EC) 40 mg PO BID hydrochlorothiazide 12.5 mg tablet 12.5 mg PO DAILY amlodipine 2.5 mg tablet 2.5 mg PO DAILY PRN (Reason: hypertension) Qty: 30 3RF metoprolol succinate 100 mg tablet extended release 24 hr 100 mg PO .noon Qty: 30 0RF Rx Instructions: MUST have follow-up with new provider for further refills magnesium 200 mg tablet 400 mg PO DAILY vitamin E 1,000 unit Capsule 1,000 unit PO DAILY glucosamine sulfate [Glucosamine] 500 mg tablet 500 mg PO DAILY Discharge Orders: Discharge ED (Routine); Ordered 06/20/22 Ordered By: Maurice Solorzano Referrals: Peter Cid MD [Primary Care Provider] - Discharge Diet: Usual diet Discharge Activity: Increase activity as tolerated Patient Instructions: Hypertension (ED), General Headache (ED), Pain Management Activity Restrictions/Additional Instructions: Thank you for visiting the emergency department. You were seen evaluated for high blood pressure and associated generalized symptoms. The exact cause of the symptoms is unclear though may be related to high blood pressure. I will add clonidine as a second line as needed medication for blood pressure greater than 180 systolic or 100 diastolic and symptomatic. Please follow-up with your primary care provider. Please use all other medications previously prescribed. Return to the emergency department for uncontrolled symptoms or anything else that you are concerned about a feel needs emergency department evaluation. Coding Level of Care Code ED Assistant Secretary for Donna Fwrené Exam Comprehensive
--- NOTE | 2022-06-20 09:25 | ECG_ITS ---
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 Measurements Intervals [place] Rate: 58 P: 30 CO: 181 QRS: -10 QRSD: 97 T: 13 QT: 401 QTc: 397 Interpretive Statements SINUS BRADYCARDIA No previous ECG available for comparison Electronically Signed On 06-20-2022 12:08:26 CDT by Carol Whittaker M.D. [id number]
[2022-06-20] MEDS: labetalol 5 mg/mL SDV 20mL 20 MG IVP (10:02)
[2022-06-20 10:10] LABS: Add Urine Microscopic? NO; Charge for UA Resulting for Rev
[2022-06-20 10:15] LABS: Bilirubin Urine Neg (Negative); Blood Urine Neg (Negative); Glucose Urine UA Norm (Normal); Ketones Urine Negative (Negative); Leukocyte Esterase Urine Negative (Negative); Nitrate Urine Negative (Negative); Protein Urine Neg (Negative); Specific Gravity, Urine 1.005 (1.005-1.030); Urine Appearance Clear (CLEAR); Urine Color Yellow (Yellow); Urobilinogen Urine Norm (Negative); pH Urine 5 (5-7)
[2022-06-20 10:18] LABS: Basophils % 0.4 %; Eosinophils # 0.1 10^3/uL (0.0-0.8); Eosinophils % 1.3 %; Hematocrit 42.8 % (37.0-47.0); Hemoglobin 14.1 g/dL (11.5-15.3); Lymphocytes # 1.1 10^3/uL (0.8-4.8); Lymphocytes % 23.7 %; Mean Corpuscular HGB Conc 32.9 g/dL (30.0-36.0); Mean Corpuscular Hemoglobin 30.6 pg (28.0-34.0); Mean Corpuscular Volume 92.8 fl (81-99); Mean Platelet Volume 10.3 fL (7.4-10.4); Monocytes # 0.4 10^3/uL (0.2-0.9); Monocytes % 7.5 %; Neutrophils # 3.13 10^3/uL (1.8-7.7); Neutrophils % 66.9 %; Nucleated Red Blood Cells % 0 %; Platelet Count 250 10^3/cmm (130-400); Red Blood Count 4.61 10^6/uL (4.1-5.3); Red Cell Distribution Width 13.5 % (12.1-15.1); White Blood Count 4.7 10^3/uL (4.0-10.0)
[2022-06-20 10:27] LABS: Influenza A by IFA negative (Negative); Influenza B by IFA negative (Negative)
[2022-06-20 10:30] LABS: SARS Covid-2 Antigen negative (Negative)
[2022-06-20 10:33] LABS: Alanine Aminotransferase 14 U/L (0-33); Albumin Level 4.2 g/dL (3.5-5.2); Alkaline Phosphatase 67 U/L (35-105); Anion Gap 16.7 (5-19); Aspartate Amino Transferase 14 U/L (0-32); Blood Urea Nitrogen 21 mg/dL (8-23); Calcium 9.6 mg/dL (8.5-10.5); Carbon Dioxide 24 mmol/L (22-29); Chloride 105 mmol/L (98-107); Globulin 2.9 g/dL (1.3-4.6); Glomerular Filtration Rate 55.3 mL/min (90-130); Glucose 106 mg/dL (65-115); Osmolality Calculated 297 mOsm/kg (285-295); Potassium 3.7 mmol/L (3.5-5.1); Sodium 142 mmol/L (136-145); Total Bilirubin 0.4 mg/dL (0.15-1.2); Total Protein 7.1 g/dL (6.6-8.7)
[2022-06-20 10:37] LABS: Troponin(5th) Baseline 10 ng/L (0-10)
--- NOTE | 2022-06-20 11:25 | ECG_ITS ---
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 Measurements Intervals [place] Rate: 60 P: 11 OK: 174 QRS: -11 QRSD: 97 T: 6 QT: 426 QTc: 428 Interpretive Statements SINUS RHYTHM POSSIBLE ANTERIOR MYOCARDIAL INFARCTION , PROBABLY OLD [30 ms Q WAVE IN V3/V4, OR R < 0.2 mV IN V4] Compared to ECG 06/20/2022 09:39:27 Myocardial infarct finding now present Sinus bradycardia no longer present Electronically Signed On 06-20-2022 12:09:28 CDT by Carol Whittaker M.D. [id number]
[2022-06-20] MEDS: diphenhydrAMINE 50 mg/mL SDV 1mL 12.5 MG IVP (11:31)
[2022-06-20 11:34] LABS: NT Pro B Type Natriuretic Pept 185 pg/mL (0-125); Thyroid Stimulating Hormone 0.74 uIU/mL (0.27-4.20)
[2022-06-20] MEDS: metoclopramide 5 mg/mL SDV 2 mL IVP (11:35)
[2022-06-20] MEDS: ketorolac 30 mg/mL INJ 15 MG IVP (11:35)
== END 2022-06-20 12:51 | disposition home or self-care (01) ==
PROVIDERS: Emergency Provider Emergency Medicine; PCP Family Medicine
DX: I10 Essential (primary) hypertension (principal); R51.9 Headache, unspecified; R53.83 Other fatigue; R53.81 Other malaise; Z79.82 Long term (current) use of aspirin; Z20.822 Contact with and (suspected) exposure to COVID-19; Z87.891 Personal history of nicotine dependence; Z85.3 Personal history of malignant neoplasm of breast
CPT/HCPCS: 36415; 80053; 81003; 83880; 84443; 84484; 85025; 87426; 87804; 93005; 96374; 96375; 99285; J1200; J1885; J2765; J3490

== ENCOUNTER 2022-06-29 13:21 | Outpatient (CLI) | payer OTHER, MEDICARE, SELFPAY ==
--- NOTE | 2022-06-29 13:45 | MR_ITS ---
WS: [id number] MRI HEAD WITH CONTRAST TECHNIQUE: Sagittal T1, T2 axial, T2 axial FLAIR, axial susceptibility weighted imaging, axial diffus ion weighted images, and coronal T2 images were obtained. Pre and post-T1 axial and post T1 coronal i mages. ADC and FSPGR images. CLINICAL INFORMATION: Diplopia, Headache COMPARISON: None. FINDINGS: No evidence of restricted diffusion to suggest acute ischemia. Ventricular system and basal cisterns are patent. Mild small vessel changes. Mild parenchymal volume loss. Normal posterior fossa. Normal v ascular flow voids at the skull base. No extra-axial fluid collections. No evidence of mass or mass e ffect. Mild mucosal thickening in the ethmoid air cells. Mastoid air cells are well aerated. Loss of the nor mal RIGHT ICA flow void at the skull base suspicious for stenosis/slow flow. Recommend further evalu ation with CTA head and neck. No hemosiderin on the susceptibly weighted images. Normal optic chiasm and pituitary infundibulum. Mi ld symmetric atrophy temporal lobes and hippocampal formations. No abnormal gadolinium enhancement. Normal visualized dural venous sinuses. MR/MR head wo/w con [id number] IMPRESSION: 1. No evidence of restricted diffusion to suggest acute ischemia. 2. Mild small vessel changes with mild parenchymal volume loss. 3. No abnormal intracranial enhancement. 4. No hemosiderin on the susceptibility weighted images. 5. Loss of the normal RIGHT ICA flow void at the skull base and extending into the petrous and cavernous segments and supraclinoid ICA. Findings suggestive of slow flow with high-grade stenosis. Recommend further evaluation with CTA he ad and neck.
[2022-06-29] MEDS: gadobenate dimeglumine 20 mL vial IV (14:36)
== END 2022-06-29 13:22 | disposition home or self-care (01) ==
LOC: RAD 13:22
PROVIDERS: PCP Family Medicine; Visit Provider Family Medicine
DX: H53.2 Diplopia (principal); R51.9 Headache, unspecified
CPT/HCPCS: 70553; A9577

== ENCOUNTER → 2022-07-10 14:40 | Outpatient (BNVA) | payer OTHER, MEDICARE, SELFPAY | PROVIDERS: PCP Family Medicine; Visit Provider Internal Medicine | DX: I12.9 Hypertensive chronic kidney disease with stage 1 through stage 4 chronic kidney disease, or unspecified chronic kidney disease (principal); E11.22 Type 2 diabetes mellitus with diabetic chronic kidney disease; N18.9 Chronic kidney disease, unspecified; Z87.891 Personal history of nicotine dependence; Z79.84 Long term (current) use of oral hypoglycemic drugs | CPT/HCPCS: 99214 ==

== ENCOUNTER 2022-08-09 06:29 | Outpatient (CLI) | payer OTHER, MEDICARE, SELFPAY ==
--- NOTE | 2022-08-09 07:00 | CT_ITS ---
WS: [id number] CT ANGIOGRAM CEREBRAL AND CAROTID ARTERIES HISTORY: Possible high grade stenosis of right internal carotid artery. TECHNIQUE: CT angiogram is performed of the carotid and cerebral arteries. During arterial injection imaging is obtained from the skull vertex to the aortic arch in 1.25 mm imaging. Coronal and sagittal reformats are submitted. Additional multi planar reformats of the carotid and cerebral arteries are submitted, MIP imaging also reviewed. NASCET criteria utilized. All CT scans at [facility] us e at least one of these dose optimization techniques: automated exposure control; mA and/or kV adjust ment per patient size (includes targeted exams where dose is matched to clinical indication); or iter ative reconstruction. CONTRAST: Omnipaque 350; 95 mL IV. DLP: 1021.11 mGy.cm COMPARISON: MRI 06/29/[address] head is negative for acute hemorrhage. Mild atrophy and small vessel ischemic disease. Carotid Angiogram: Right carotid: Common carotid artery: Mild intimal thickening. Increasing plaque at the bifurcation. Internal carotid artery: Abrupt termination of contrast opacification in the proximal RIGHT ICA. Mixt ure of calcification and noncalcified plaque. RIGHT ICA remains completely occluded through the fidel us segment and cavernous sinuses to the supraclinoid carotid artery. External carotid artery: Patent. Left carotid: Common carotid artery: Arises normally from the aorta. No significant plaque or stenosis. Internal carotid artery: Small amount of plaque in thrombus. No high-grade stenosis. External carotid artery: Patent. Right vertebral artery: Unremarkable. Mildly dominant. Left vertebral artery: Unremarkable. Arises normally from the subclavian artery. Subclavian arteries: No stenosis or significant abnormality. Upper thorax: Normal. Thyroid gland: Normal. Osseous structures: Mild cervical spondylosis. CEREBRAL ANGIOGRAM: Intracranial vertebral arteries: Normal with no significant atherosclerosis. Basilar artery: No significant stenosis or occlusion. No aneurysm. Intracranial Internal carotid arteries: Complete occlusion RIGHT ICA the cervical bifurcation into th e supraclinoid carotid artery. LEFT ICA is patent with a small amount of calcified plaque. Middle cerebral arteries: Patent bilaterally. RIGHT MCA opacification secondary to an intact RIGHT po sterior communicating artery and the A1 segment. Anterior cerebral arteries and ACOM: Normal. Posterior cerebral arteries and PCOM's: Normal. Dural venous sinuses are normally enhancing. Mastoid air cells: Normal. Paranasal sinuses: Normal. Calvarium: Normal. CT/CT angio headneck* [id number] IMPRESSION: 1. 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 2. Intact platinum of [place] providing flow to the RIGHT MCA. 3. Mild plaque intracranial and extracranial LEFT carotid artery with no signi ficant stenosis. 4. No aneurysms. Notified Peter Cid MD at 08/09/2022 9:00 AM. Office to relay report to Steve Cid.
[2022-08-09] MEDS: iohexol 350 mg/mL 500 mL Btl (per mL) IV (07:04)
== END 2022-08-09 06:30 | disposition home or self-care (01) ==
LOC: RAD 06:29
PROVIDERS: PCP Family Medicine; Visit Provider Family Medicine
DX: I65.21 Occlusion and stenosis of right carotid artery (principal)
CPT/HCPCS: 70496; 70498; Q9967

== ENCOUNTER 2022-08-14 12:10 | Outpatient (CLI) | payer OTHER, MEDICARE, SELFPAY ==
--- NOTE | 2022-08-14 12:18 | MM_ITS ---
WS: [id number] Bilateral diagnostic 3D tomosynthesis digital mammogram, 08/14/2022 Clinical Data: breast cancer Comparison: 07/08/2020, 10/22/2019, 09/22/2019, 08/25/2019, 06/23/2019. Findings: There is thickening of the medial aspect of the right breast at the site of biopsy. There are small c alcifications 5 cm posterior to the left nipple in the central portion of the right breast. These fartun cifications were not apparent 1 year ago. The lateral right breast shows no skin thickening. Both isidoro asts show fibroglandular tissue. There are no spiculated masses or clustered calcifications in the le ft breast. There are lymph nodes in both axilla. MM/[place] [id number] Impression: 1. Posttreatment changes of medial right breast with small calcifications 5 cm posterior to the areola. 2. Negative left breast. 3. Recommend magnification views in the CC and ML projection and of the right b reast and right breast ultrasound of the medial breast. BIRADS: 0-Incomplete: Need additional imaging evaluation FOLLOW UP: See Report The CAD auto design checker was used.
== END 2022-08-14 12:11 | disposition home or self-care (01) ==
PROVIDERS: PCP Family Medicine; Visit Provider Internal Medicine Medical Oncology
DX: D05.11 Intraductal carcinoma in situ of right breast (principal)
CPT/HCPCS: 77062; G0279

== ENCOUNTER 2022-08-21 10:23 | Outpatient (CLI) | payer OTHER, MEDICARE, SELFPAY ==
--- NOTE | 2022-08-21 10:34 | MM_ITS ---
WS: [email or web address] breast diagnostic 3D tomosynthesis digital mammogram, 08/21/2022 Clinical Data: intraductal carcinoma in situ of right breast Comparison: 08/14/2022, 07/26/2021. Findings: There are spiculated calcifications in the medial lower quadrant of the right breast. These are only recently visible and are not seen on the prior examination. They are approximately 5 cm from the nipp le. No other calcifications are seen. There are no masses. The medial right breast shows skin thicken ing from the treatment for breast cancer. MM/[place] [id number] Impression: 1. Development of small clustered calcifications in medial lower quadrant of th e right breast. 2. Recommend right breast ultrasound. BIRADS: 4-Suspicious Finding-Biopsy Should Be Considered FOLLOW UP: See Report
--- NOTE | 2022-08-21 10:34 | US_ITS ---
WS: [email or web address] Right breast ultrasound, 08/21/2022 Clinical Data: intraductal carcinoma in situ of right breast Comparison: Right breast mammogram, 08/21/2022 Findings: The lower outer quadrant right breast revealed only normal breast tissue. There were no masses or cys ts. The calcifications were not imaged. US/US breast RT limited* [id number] Impression: 1. Negative ultrasound of the lower outer quadrant of the right breast. 2. Recommend biopsy of calcifications of the lower outer quadrant of the right breast by mammography. BIRADS: 4-Suspicious Finding-Biopsy Should Be Considered FOLLOW UP: Biopsy Recommended
== END 2022-08-21 10:24 | disposition home or self-care (01) ==
PROVIDERS: PCP Family Medicine; Visit Provider Internal Medicine Medical Oncology
DX: D05.11 Intraductal carcinoma in situ of right breast (principal); R92.1 Mammographic calcification found on diagnostic imaging of breast
CPT/HCPCS: 76642; 77061; 77065; G0279

== ENCOUNTER → 2022-08-23 12:18 | Outpatient (BNVA) | payer OTHER, MEDICARE, SELFPAY | PROVIDERS: PCP Family Medicine; Visit Provider Family Medicine | DX: N18.9 Chronic kidney disease, unspecified (principal); N26.1 Atrophy of kidney (terminal); I10 Essential (primary) hypertension | CPT/HCPCS: 80048 ==

== ENCOUNTER 2022-09-25 12:28 | Outpatient (CLI) | payer OTHER, MEDICARE, SELFPAY ==
--- NOTE | 2022-09-25 12:54 | MM_ITS ---
WS: [id number] STEREOTACTIC RIGHT BREAST BIOPSY WITH VACUUM ASSISTANCE HISTORY: Suspicious calcifications RIGHT breast. COMPARISON: 08/21/2022 and 08/14/2022 Procedure, risks and complications were explained to the patient. Medications and prior radiographs a re reviewed. RIGHT breast calcifications are located. Calcifications are localized to the medial inferior RIGHT br east. Calcifications are targeted in the craniocaudal projection. The skin is cleansed with ChloraPre p and anesthetized with 1% buffered lidocaine. Deeper soft tissues anesthetized with a combination of lidocaine and epinephrine. Small dermatome is made. Needle advanced into the RIGHT breast. Stereotac tic imaging reveals appropriate positioning adjacent calcifications. Multiple vacuum-assisted core bi opsies are obtained. No complications were encountered. Post biopsy specimen radiograph reveals numerous calcifications. Biopsy clip is placed in the cavity. Post imaging reveals good placement of the clip. No migration. Pressures held for approximately 15 minutes. No bleeding. Dressing applied. Patient discharged with n o complications. There is no bleeding. With any questions or complications patient is to return. MM/[place] [id number] IMPRESSION: 1. Uncomplicated RIGHT breast stereotactic biopsy. 2. Specimen contains numerous calcifications. Pathology: Ductal carcinoma in situ, grade 3 with comedonecrosis. RECOMMENDATION: Follow-up with Dr. Yanez.
--- NOTE | 2022-09-25 12:55 | MM_ITS ---
WS: [id number] STEREOTACTIC RIGHT BREAST BIOPSY WITH VACUUM ASSISTANCE HISTORY: Suspicious calcifications RIGHT breast. COMPARISON: 08/21/2022 and 08/14/2022 Procedure, risks and complications were explained to the patient. Medications and prior radiographs a re reviewed. RIGHT breast calcifications are located. Calcifications are localized to the medial inferior RIGHT br east. Calcifications are targeted in the craniocaudal projection. The skin is cleansed with ChloraPre p and anesthetized with 1% buffered lidocaine. Deeper soft tissues anesthetized with a combination of lidocaine and epinephrine. Small dermatome is made. Needle advanced into the RIGHT breast. Stereotac tic imaging reveals appropriate positioning adjacent calcifications. Multiple vacuum-assisted core bi opsies are obtained. No complications were encountered. Post biopsy specimen radiograph reveals numerous calcifications. Biopsy clip is placed in the cavity. Post imaging reveals good placement of the clip. No migration. Pressures held for approximately 15 minutes. No bleeding. Dressing applied. Patient discharged with n o complications. There is no bleeding. With any questions or complications patient is to return. MM/MM surgical specimen RT IMPRESSION: 1. Uncomplicated RIGHT breast stereotactic biopsy. 2. Specimen contains numerous calcifications. Pathology: Ductal carcinoma in situ, grade 3 with comedonecrosis. RECOMMENDATION: Follow-up with Dr. Yanez.
--- NOTE | 2022-09-25 12:55 | MM_ITS ---
WS: [email or web address] STEREOTACTIC RIGHT BREAST BIOPSY WITH VACUUM ASSISTANCE HISTORY: Suspicious calcifications RIGHT breast. COMPARISON: 08/21/2022 and 08/14/2022 Procedure, risks and complications were explained to the patient. Medications and prior radiographs a re reviewed. RIGHT breast calcifications are located. Calcifications are localized to the medial inferior RIGHT br east. Calcifications are targeted in the craniocaudal projection. The skin is cleansed with ChloraPre p and anesthetized with 1% buffered lidocaine. Deeper soft tissues anesthetized with a combination of lidocaine and epinephrine. Small dermatome is made. Needle advanced into the RIGHT breast. Stereotac tic imaging reveals appropriate positioning adjacent calcifications. Multiple vacuum-assisted core bi opsies are obtained. No complications were encountered. Post biopsy specimen radiograph reveals numerous calcifications. Biopsy clip is placed in the cavity. Post imaging reveals good placement of the clip. No migration. Pressures held for approximately 15 minutes. No bleeding. Dressing applied. Patient discharged with n o complications. There is no bleeding. With any questions or complications patient is to return. MM/[place] [id number] IMPRESSION: 1. Uncomplicated RIGHT breast stereotactic biopsy. 2. Specimen contains numerous calcifications. Pathology: Ductal carcinoma in situ, grade 3 with comedonecrosis. RECOMMENDATION: Follow-up with Dr. Yanez.
[2022-10-01 14:00] LABS: Breast Profile ER,PR,HER2,Ki-6 See Report
== END 2022-09-25 12:29 | disposition home or self-care (01) ==
LOC: RAD 12:31
PROVIDERS: PCP Family Medicine; Visit Provider Internal Medicine Medical Oncology
DX: D05.11 Intraductal carcinoma in situ of right breast (principal)
CPT/HCPCS: 19081; 77065; 88305; 88361; 88374

== ENCOUNTER 2022-10-10 15:23 | Oncology outpatient (recurring) (ONCR) | payer OTHER, MEDICARE, SELFPAY | END 2022-10-16 23:59 | disposition home or self-care (01) | LOC: ONCMED 15:23 | PROVIDERS: PCP Family Medicine; Visit Provider Internal Medicine Medical Oncology | DX: D05.11 Intraductal carcinoma in situ of right breast (principal) ==

== ENCOUNTER 2022-11-06 06:02 | Outpatient (CLI) | payer OTHER, MEDICARE, SELFPAY ==
--- NOTE | 2022-11-06 | USCV_ITS ---
Anna Prater Age: 67 Gender: F : 1955 Exam Date: 11/06/2022 06:19 Ordering Phys: Ricardo Bhat Technologist: CT Exam Location: [facility] [place]_ Indication: aaa screening HISTORY: Diameter (cm) AP x Transverse x Length Velocity (cm/s) Waveform Prox Aorta: 3.45 x 2.97 x 62.00 Mid Aorta: 2.67 x 2.83 x 71.10 Distal Aorta: 3.04 x 3.14 x 51.20 Right Iliac Prox: 0.96 x 1.07 x 173.50 Left Iliac Prox: 0.87 x 1.07 x 180.10 Stent Prox Landing x x Aneurysmal Sac Max x x Lt Lat Sac Dim Rt Lat Sac Dim Stent Dist Landing x x Right Iliac Stent x x Left Iliac Stent x x Right Renal Art Left Renal Art FINDINGS: slightly aneursymal prx and distal ao, ectatic throughout Distal abdominal aorta measuring 3.04 x 3.14 cm. Fusiform aneurysmal dilatation. Proximal and the mid aorta appears to be ectatic. Mild diffuse plaques were noted in the aorta. Elevated velocity in the proximal iliac arteries CONCLUSIONS 1. Fusiform aneurysm of the distal abdominal aorta measuring 3.04 x 3.14 cm 2. 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 3. Elevated velocity in the proximal common iliac arteries may suggest a greater than 50% stenosis. Consider CTA, to better evaluate the proximal common iliac arteries. No similar previous studies are available for comparison Dr Chayo Oliva MD [facility] (Electronically Signed) Final Date: 06 November 2022 22:17 S
== END 2022-11-06 06:03 | disposition home or self-care (01) ==
LOC: RAD 06:05
PROVIDERS: PCP Family Medicine; Visit Provider Surgery
DX: I71.40 Abdominal aortic aneurysm, without rupture, unspecified (principal)
CPT/HCPCS: 76706

== ENCOUNTER 2023-02-13 15:56 | Oncology outpatient (recurring) (ONCR) | payer OTHER, MEDICARE, SELFPAY | END 2023-02-15 23:59 | disposition home or self-care (01) | LOC: ONCMED 15:57 | PROVIDERS: PCP Family Medicine; Visit Provider Internal Medicine Medical Oncology | DX: Z53.9 Procedure and treatment not carried out, unspecified reason (principal) ==

== ENCOUNTER → 2023-02-20 11:24 | Outpatient (BNVA) | payer OTHER, MEDICARE, SELFPAY | PROVIDERS: PCP Family Medicine; Visit Provider Family Medicine | DX: N18.31 Chronic kidney disease, stage 3a (principal) | CPT/HCPCS: 80069; 81000; 82043; 82306; 82310; 83970; 85025 ==

== ENCOUNTER → 2023-07-23 15:58 | Outpatient (BNVA) | payer MEDICARE, SELFPAY | PROVIDERS: PCP Family Medicine; Visit Provider Internal Medicine Cardiovascular Disease | DX: R06.02 Shortness of breath (principal); R07.9 Chest pain, unspecified; R00.2 Palpitations; I10 Essential (primary) hypertension; I65.23 Occlusion and stenosis of bilateral carotid arteries; E11.9 Type 2 diabetes mellitus without complications; N26.1 Atrophy of kidney (terminal); G47.33 Obstructive sleep apnea (adult) (pediatric); Z87.891 Personal history of nicotine dependence; I49.3 Ventricular premature depolarization | CPT/HCPCS: 36415; 80048; 83880; 93005; 99214 ==

== ENCOUNTER 2023-07-30 07:08 | Outpatient (CLI) | payer MEDICARE, SELFPAY ==
--- NOTE | 2023-07-30 07:00 | USCV_ITS ---
Moi Anna Age: 68 Gender: F : 1955 Exam Date: 07/30/2023 07:18 Ordering Phys: Chayo Oliva MD ([email or web address]) Technologist: [email or web address] Exam Location: [facility] [place] Indication: HYPERTENSION/SHORTNESS OF BREATH BP: 150 / 89 HR: 60 Rhythm: Sinus Technical Quality: Adequate MEASUREMENTS (Male / Female) Normal Values 2D ECHO LVOT Diameter 2.0 cm LV Ejection Fraction MOD 2C 60.0 % LV Ejection Fraction 2C AL 58.9 % LA Diameter 2.9 cm LA Width 2.9 cm LA Height 3.3 cm RA Width 2.7 cm RA Height 4.5 cm Aorta at Sinotubular Diameter 2.6 cm IVC Diameter 1.5 cm M-MODE Aortic Annulus Diameter 3.3 cm LA Ao Ratio MM 0.7 MV E Point Septal Separation 0.3 cm DOPPLER AV Peak Velocity 119.0 cm/s LVOT Peak Velocity 89.0 cm/s AV Area Cont Eq vti 3.0 cm squared AV Area Cont Eq pk 2.3 cm squared MV Peak Velocity 88.0 cm/s MV Area PHT 3.0 cm squared Mitral E to A Ratio 0.8 MV E' Velocity 39.0 cm/s Mitral E to MV E' Ratio 7.4 Mitral E to LV E' Lateral Ratio 7.1 Mitral E to LV E' Septal Ratio 7.8 TR Peak Velocity 160.5 cm/s TR Peak Gradient 10.3 mmHg TR Mean Velocity 120.2 cm/s TR Mean Gradient 6.2 mmHg TR Velocity Time Integral 39.6 cm TV Peak E Velocity 45.0 cm/s Right Atrial Pressure 3.0 mmHg Pulmonary Artery Systolic Pressu 13.3 mmHg PV Peak Velocity 106.0 cm/s RV Acceleration Time 0.1 s RV Ejection Time 0.3 s RV AcT/ET 0.4 FINDINGS Left Ventricle Normal left ventricular size and systolic function, EF 62 %. Mild left ventricular hypertrophy. No regional wall motion abnormalities. Grade I/IV diastolic dysfunction (abnormal relaxation filling pattern), normal to mildly elevated filling pressures. Right Ventricle The right ventricle is normal in size and function. Right Atrium The right atrium is normal in size. Left Atrium The left atrium is normal in size. Mitral Valve Trace mitral valve regurgitation. Aortic Valve No gross abnormalities noted Tricuspid Valve No gross abnormalities noted Pulmonic Valve No gross abnormalities noted Pericardium Normal pericardium without effusion. Aorta Normal ascending aorta dimension. IVC The inferior vena cava appears normal. CONCLUSIONS Normal left ventricular size and systolic function, EF 62 %. Mild left ventricular hypertrophy. No regional wall motion abnormalities. Grade I/IV diastolic dysfunction (abnormal relaxation filling pattern), normal to mildly elevated filling pressures. No gross valvular abnormalities noted Normal cardiac chamber sizes. Trace mitral valve regurgitation. There is no pericardial effusion. There are no intracardiac masses. No similar previous studies are available for comparison Dr Chayo Oliva MD [facility] (Electronically Signed) Final Date: 02 August 2023 09:04 S
== END 2023-07-30 07:09 | disposition home or self-care (01) ==
LOC: RAD 07:08
PROVIDERS: PCP Family Medicine; Visit Provider Internal Medicine Cardiovascular Disease
DX: R06.09 Other forms of dyspnea (principal); R00.2 Palpitations; I10 Essential (primary) hypertension; R06.02 Shortness of breath
CPT/HCPCS: 93306

== ENCOUNTER → 2023-08-05 08:07 | Outpatient (BNVA) | payer MEDICARE, SELFPAY | PROVIDERS: PCP Family Medicine; Visit Provider Internal Medicine Cardiovascular Disease | DX: R00.2 Palpitations (principal); I49.3 Ventricular premature depolarization; I49.1 Atrial premature depolarization; R00.0 Tachycardia, unspecified | CPT/HCPCS: 93242 ==

== ENCOUNTER → 2023-09-05 09:36 | Outpatient (BNVA) | payer MEDICARE, SELFPAY | PROVIDERS: PCP Family Medicine; Visit Provider Family Medicine | DX: Z51.81 Encounter for therapeutic drug level monitoring (principal); E11.9 Type 2 diabetes mellitus without complications; N18.30 Chronic kidney disease, stage 3 unspecified; N25.81 Secondary hyperparathyroidism of renal origin; E78.5 Hyperlipidemia, unspecified; Z13.220 Encounter for screening for lipoid disorders; N18.31 Chronic kidney disease, stage 3a; Z79.899 Other long term (current) drug therapy | CPT/HCPCS: 80061; 80069; 82542; 82570; 82652; 83036; 84156; 85025 ==

== ENCOUNTER → 2023-09-20 09:06 | Outpatient (BNVA) | payer MEDICARE, SELFPAY | PROVIDERS: PCP Family Medicine; Visit Provider Nurse Practitioner | DX: R20.0 Anesthesia of skin (principal); M25.531 Pain in right wrist; M25.532 Pain in left wrist | CPT/HCPCS: 73130; 99204 ==

== ENCOUNTER → 2023-10-11 11:59 | Outpatient (BNVA) | payer MEDICARE, SELFPAY | PROVIDERS: PCP Family Medicine; Visit Provider Specialist | DX: G56.03 Carpal tunnel syndrome, bilateral upper limbs (principal); G56.22 Lesion of ulnar nerve, left upper limb | CPT/HCPCS: 95910; 95911 ==

== ENCOUNTER → 2023-10-21 15:18 | Outpatient (BNVA) | payer MEDICARE, SELFPAY | PROVIDERS: PCP Family Medicine; Visit Provider Family Medicine | DX: M25.50 Pain in unspecified joint (principal); I10 Essential (primary) hypertension | CPT/HCPCS: 85651; 86038; 86141; 86431 ==

== ENCOUNTER → 2023-11-04 13:37 | Outpatient (BNVA) | payer MEDICARE, SELFPAY | PROVIDERS: PCP Family Medicine; Visit Provider Nurse Practitioner | DX: G56.03 Carpal tunnel syndrome, bilateral upper limbs (principal); R20.0 Anesthesia of skin; M25.531 Pain in right wrist; M25.532 Pain in left wrist | CPT/HCPCS: 99214 ==

== ENCOUNTER → 2023-11-19 15:07 | Outpatient (BNVA) | payer MEDICARE, SELFPAY | PROVIDERS: PCP Family Medicine; Visit Provider Family Medicine | DX: Z01.818 Encounter for other preprocedural examination (principal); Z79.899 Other long term (current) drug therapy | CPT/HCPCS: 80053; 85025 ==

== ENCOUNTER 2023-11-26 13:57 | Day surgery (SDC) | payer MEDICARE, SELFPAY ==
[2023-11-26] VITALS (10 sets, daily range): BP systolic 123–155; BP diastolic 73–100; PULSE 63–82; RESP 12–20; TEMP 36.2–37.2; O2SAT 93–100; BMI 29.0
[2023-11-26] MEDS: sodium chloride 0.9% 1,000 ML 30 ML IV (14:50)
[2023-11-26] MEDS: CELEcoxib 200 mg Capsule 400 MG PO (14:50)
[2023-11-26] MEDS: gabapentin 300 mg Capsule PO (14:51)
[2023-11-26] MEDS: acetaminophen 1,000 MG/100 ML PIGGYBACK 400 MG IV (14:51)
--- NOTE | 2023-11-26 15:22 | P.HPUD_ITS ---
Surgery/Procedure H&P Update DATE OF PROCEDURE: November 26, 2023 DATE H&P PERFORMED: 11/19/23 H&P UPDATE INFORMATION: I have reviewed H&P completed within last 30 days, I have examined patient prior to procedure, No changes to prior documentation and H&P is in [facility] EMR on date indicated PLANNED PROCEDURE: Operation Date: 11/26/23 15:45 Proposed Procedures p Carpal Tunnel Release(Right) - Марина King MD Related Problem List Diagnoses (1) Carpal tunnel syndrome on right:
[2023-11-26] MEDS: ceFAZolin 2,000 MG in sodium chloride 0.9% (plus) 50 ML 100 MG IV (15:47)
[2023-11-26] MEDS: BUPivacaine 0.5% INJ 30 mL XX (16:08)
--- NOTE | 2023-11-26 16:42 | PM.OP ---
Operative Report Date of procedure: November 26, 2023 Pre-op diagnosis: Right carpal tunnel syndrome Post-op diagnosis: Right carpal tunnel syndrome Post-op findings: Significant compression across carpal canal with deformity to the median nerve Procedure done: Right carpal tunnel release Specimens removed/disposition: None Surgeon: Марина King MD [employer] Specialist: None Anesthesia: General (Per LMA, ASA 2) Estimated blood loss (mL): 5 Tourniquet time (min): 22 (At 250 mmHg) IV fluids (mL): 400 Urine output (mL): 0 (No Doyle) Complications: None Findings: Significant compression across carpal canal with nerve deformity and Purplish discoloration Condition: stable Disposition: PACU (Then discharged to home to follow-up as scheduled) Brief History: This 68-year-old woman presented with complaints of significant pain in the right hand. Nerve conduction study documented findings consistent with carpal tunnel syndrome. The patient had participated in home stretches as well as night bracing with only minimal relief. The patient wished to proceed with right carpal tunnel release. In the office, consents were signed and questions were answered. Procedure: The patient was brought to the operating theater. The patient had general anesthesia per LMA, ASA 3. The tourniquet was elevated to 250 mmHg for a total tourniquet time of 22 minutes. The patient was also given Ancef 2 g preoperatively. The arm was then prepped and draped with DuraPrep in usual fashion with the arm draped free. A surgical pause was performed. At the time, the surgical pause, we confirmed the site and side of surgery. We also confirmed the patient's identity, appropriate and timely administration of preoperative antibiotics and preoperative surgical markings. An incision was then made along the thenar crease. Dissection continued through skin and soft tissues using a scalpel. The palmaris longus was identified along with the transverse carpal ligament. Each of these was released carefully to avoid injury to the median nerve. We were able to dissect gently into the carpal canal which was noted to be quite tight with significant compression across the median nerve. The nerve was visualized and was an hourglass shape. The canal was subsequently palpated to assure there was no bony encroachment upon the canal. There was a quite thickened fibrous tissue within the canal, and this was opened longitudinally as well. The canal was then palpated distally and proximally to assure that my small finger was passed easily without impingement. Finding this to be so, attention was directed to closure. The wound was irrigated with ropivacaine plain. It was then closed with 3-0 nylon in an interrupted mattress fashion. Sterile dressing was then placed consisting of Dermabond, OpSite, fluffed fluffs, soft roll, and an Ronnie wrap. The tourniquet was released after 22 minutes. There were no complications. There were no specimens. The procedure was well tolerated. Plan is the patient will be discharged home. Related Problem List Diagnoses (1) Carpal tunnel syndrome on right:
--- NOTE | 2023-11-27 07:46 | ANE.PACU2 ---
Inpatient post-anesthesia follow up: Airway intact: Yes Vital signs: Temperature 97.5 F Pulse Rate 67 Respiratory Rate 18 Blood Pressure 134/77 Pulse Oximetry 93 Oxygen Delivery Me thod Room Air Oxygen Flow Rate 10 Fraction of Inspir ed Oxygen Hydration adequate: Yes Nausea and vomiting: No Pain level: 2 Mental status: Baseline
== END 2023-11-26 17:40 | disposition home or self-care (01) ==
PROVIDERS: PCP Family Medicine; Visit Provider Specialist
PROC: (CPT 64721; principal; 2023-11-26 15:35)
DX: G56.01 Carpal tunnel syndrome, right upper limb (principal); I12.9 Hypertensive chronic kidney disease with stage 1 through stage 4 chronic kidney disease, or unspecified chronic kidney disease; N18.30 Chronic kidney disease, stage 3 unspecified; E78.5 Hyperlipidemia, unspecified; G47.33 Obstructive sleep apnea (adult) (pediatric); Z91.199 Patient's noncompliance with other medical treatment and regimen due to unspecified reason; Z85.3 Personal history of malignant neoplasm of breast; Z79.82 Long term (current) use of aspirin
CPT/HCPCS: 64721; J0131; J0690; J2405; J2704; J3010; J3490; J7030

== ENCOUNTER → 2023-12-09 09:43 | Outpatient (BNVA) | payer MEDICARE, SELFPAY | PROVIDERS: PCP Family Medicine; Visit Provider Specialist | DX: Z01.818 Encounter for other preprocedural examination (principal); E11.9 Type 2 diabetes mellitus without complications; G56.03 Carpal tunnel syndrome, bilateral upper limbs; Z79.899 Other long term (current) drug therapy | CPT/HCPCS: 36415; 80053; 81003; 83036; 85025; 99214 ==

== ENCOUNTER → 2024-05-18 13:11 | Outpatient (BNVA) | payer MEDICARE, SELFPAY | PROVIDERS: PCP Family Medicine; Visit Provider Family Medicine | DX: Z51.81 Encounter for therapeutic drug level monitoring (principal); E55.9 Vitamin D deficiency, unspecified; E11.9 Type 2 diabetes mellitus without complications; N18.9 Chronic kidney disease, unspecified | CPT/HCPCS: 80053; 82043; 82306; 83036; 85025 ==

== ENCOUNTER 2024-08-26 11:25 | Outpatient (CLI) | payer MEDICARE, SELFPAY ==
[2024-08-26 12:46] LABS: Basophils % 0.6 %; Eosinophils # 0.2 10^3/uL (0.0-0.8); Eosinophils % 3.1 %; Hematocrit 42.4 % (36-47); Lymphocytes # 1.9 10^3/uL (0.8-4.8); Lymphocytes % 36.9 %; Mean Corpuscular HGB Conc 32.8 g/dL (30-55); Mean Corpuscular Hemoglobin 31.4 pg (27-33); Mean Corpuscular Volume 95.7 fl (85-98); Mean Platelet Volume 9.5 fL (7.4-10.4); Monocytes # 0.5 10^3/uL (0.2-0.9); Monocytes % 9.4 %; Neutrophils # 2.59 10^3/uL (1.8-7.7); Neutrophils % 49.8 %; Nucleated Red Blood Cells % 0 %; Platelet Count 298 10^3/cmm (157-399); Red Blood Count 4.43 10^6/uL (3.85-5.65); Red Cell Distribution Width 13.8 % (12.1-15.1)
[2024-08-26 13:12] LABS: Albumin Level 4.3 g/dL (3.5-5.2); Blood Urea Nitrogen 28 mg/dL (8-23); Calcium 9.6 mg/dL (8.5-10.5); Carbon Dioxide 25 mmol/L (22-29); Chloride 100 mmol/L (98-107); Glomerular Filtration Rate 44.4 mL/min (90-130); Glucose 102 mg/dL (65-115); Phosphorus 2.9 mg/dL (2.5-4.5); Sodium 137 mmol/L (136-145)
[2024-08-26 13:12] LABS: Creatinine Urine, Random 121 mg/dL (28-217); Microalbum Creatinine Ratio Ur 8 mg/dL (0-20); Microalbumin Random Urine 1 ug/dL (0-20)
[2024-08-26 13:22] LABS: Parathyroid Hormone 43.2 pg/mL (15-65)
== END 2024-08-26 11:26 | disposition home or self-care (01) ==
LOC: LAB 11:27
PROVIDERS: PCP Family Medicine; Visit Provider Internal Medicine Nephrology
DX: N18.9 Chronic kidney disease, unspecified (principal)
CPT/HCPCS: 36415; 80069; 82044; 82310; 83970; 85025

== ENCOUNTER → 2025-04-22 11:13 | Outpatient (BNVA) | payer MEDICARE, SELFPAY | PROVIDERS: PCP Family Medicine; Visit Provider Family Medicine | DX: R10.9 Unspecified abdominal pain (principal); R30.0 Dysuria | CPT/HCPCS: 81000; 87086 ==